=== PATIENT | female | born 1985 | race African-American/Black ===

== ENCOUNTER 2020-11-20 08:39 | Observation (INO) ==
[2020-11-20] MEDS ORDERED: ONDANSETRON 4 MG/2 ML VIAL IV ONE (09:18)
[2020-11-20] MEDS ORDERED: HYDROmorphone 2 MG/1 ML VIAL IV STA (09:18)
[2020-11-20 10:09] LABS: Basophils % 0.3 % (0.0-0.8); Eosinophils # 0.1 10*3/uL (0.0-0.87); Eosinophils % 0.7 % (0.00-10.9); Hematocrit 38.7 VOL% (35.7-47.0); Hemoglobin 12.1 GM/DL (12.0-16.0); Immature Granulocytes % 4.2 %; Immature Granulocytes Absolute 0.57 #; Lymphocytes # 1.2 10*3/uL (1.4-4.0); Lymphocytes % 8.5 % (21.3-54.2); Mean Corpuscular HGB Conc 31.3 GM/DL (32-36); Mean Corpuscular Volume 87.6 FL (87-102); Mean Platelet Volume 11.3 FL (9.6-12.0); Monocytes % 11.2 % (1.7-12.7); NRBC # 0.02 10*3/uL; Neutrophils % 75.1 % (38.7-73.9); Platelet Count 281 T/CUMM (130-400); Red Blood Count 4.42 MC/CUMM (3.8-5.5); Red Cell Distribution Width 15.5 % (9.3-17.3); White Blood Count 13.7 T/CUMM (4-12)
[2020-11-20 10:23] LABS: Albumin 2.3 G/DL (3.4-5.0); Bilirubin,Total 0.8 MG/DL (0.20-1.00); Calcium 8.2 MG/DL (8.5-10.1); Osmolality,Calculated 279.4 MOS/KG (273-304); Potassium 3.6 MMOL/L (3.5-5.1); Total Protein 8.3 G/DL (6.4-8.2)
[2020-11-20] MEDS ORDERED: SODIUM CHLORIDE 0.9% 1,000 ML IV STA (10:28)
[2020-11-20] MEDS ORDERED: VANCOMYCIN INJ 1,250 MG in SODIUM CHLORIDE 0.9% 250 ML IV STA (10:29)
[2020-11-20] MEDS ORDERED: GLUCAGON 1 MG VIAL IM PRN (11:40)
[2020-11-20] MEDS ORDERED: ALBUTEROL 2.5 MG/3 ML NEB RESP TX PRN (11:40)
[2020-11-20] MEDS ORDERED: DEXTROSE 50% 25 GM/50 ML VIAL IV PRN (11:40)
[2020-11-20] MEDS ORDERED: ALUMINUM/MAGNES/SIMETH MAX STR 30 ML UDCUP PO PRN (11:40)
[2020-11-20] MEDS ORDERED: ONDANSETRON 4 MG/2 ML VIAL IV PRN (11:40)
[2020-11-20] MEDS ORDERED: hydrALAZINE 20 MG/1 ML VIAL IV PRN (11:40)
[2020-11-20 11:47] LABS: Bilirubin,Urine Negative (Negative); Blood, Urine Moderate mg/dL (Negative); Glucose,Urine (UA) Negative (Negative); Ketones,Urine Negative (Negative); Nitrite,Urine Negative (Negative); Protein,Urine Negative; RBC,Urine <1 /HPF (0-4); Urine Appearance CLEAR (Clear); Urine Color Yellow (Yellow); Urine Specific Gravity 1.014 (1.001-1.035)
[2020-11-20] MEDS ORDERED: SODIUM CHLORIDE 0.9% 1,000 ML IV SCH (12:00)
[2020-11-20 12:02] LABS: Hypochromasia 1+; Lymphocytes 5 % (20-55); Platelet Estimate Normal; Segmented Neutrophils 86 % (50-85); Total Cells Counted 100
[2020-11-20] MEDS ORDERED: FLUCONAZOLE INJ 200 MG/100 ML PREMIX IV ONE (12:09)
[2020-11-20] MEDS: ENOXAPARIN 40 MG/0.4 ML SYRINGE SUBCUT SCH (12:26)
[2020-11-20] MEDS: ALBUTEROL/IPRATROPIUM 3 ML NEB RESP TX SCH ×2 (13:15→19:04)
[2020-11-20] MEDS ORDERED: FUROSEMIDE 40 MG/4 ML VIAL IV ONE (13:30)
[2020-11-20] MEDS: carvediloL 25 MG TABLET PO SCH (16:15)
[2020-11-20] MEDS: NYSTATIN POWDER 15 GM BOTTLE TOP SCH (20:49)
[2020-11-20] MEDS: DOCUSATE SODIUM 100 MG CAPSULE PO SCH (20:49)
[2020-11-20] MEDS ORDERED: DESITIN 4OZ/NYSTATIN 15 GRAM MIXTURE PASTE TOP SCH (21:00)
[2020-11-20] MEDS ORDERED: SODIUM HYPOCHLORITE 0.25% IRRIG 473 ML BOTTLE TOP SCH (21:00)
[2020-11-20] MEDS ORDERED: VANCOMYCIN INJ 2,000 MG in SODIUM CHLORIDE 0.9% 500 ML IV SCH (22:00)
[2020-11-20] MEDS ORDERED: VANCOMYCIN INJ 2,500 MG in SODIUM CHLORIDE 0.9% 500 ML IV SCH (23:00)
[2020-11-21 06:30] LABS: Calcium 8.1 MG/DL (8.5-10.1); Potassium 4.2 MMOL/L (3.5-5.1); Risk Ratio 4.6; Thyroid Stimulating Hormone 0.819 uIU/ml (0.358-3.74); VLDL Cholesterol 23.2 MG/DL
[2020-11-21] MEDS: ALBUTEROL/IPRATROPIUM 3 ML NEB RESP TX SCH ×4 (07:04→19:38)
[2020-11-21] MEDS ORDERED: FUROSEMIDE 20 MG/2 ML VIAL IV ONE (07:12)
[2020-11-21 07:13] LABS: Basophils # 0.1 10*3/uL (0.0-0.2); Basophils % 0.5 % (0.0-0.8); Eosinophils # 0.2 10*3/uL (0.0-0.87); Eosinophils % 1.6 % (0.00-10.9); Hematocrit 39.3 VOL% (35.7-47.0); Hemoglobin 11.5 GM/DL (12.0-16.0); Immature Granulocytes % 4.6 %; Immature Granulocytes Absolute 0.51 #; Lymphocytes # 1.4 10*3/uL (1.4-4.0); Lymphocytes % 12.7 % (21.3-54.2); Mean Corpuscular HGB Conc 29.3 GM/DL (32-36); Mean Corpuscular Volume 92.7 FL (87-102); Mean Platelet Volume 11.4 FL (9.6-12.0); Monocytes % 14.1 % (1.7-12.7); Neutrophils % 66.5 % (38.7-73.9); Platelet Count 277 T/CUMM (130-400); Red Blood Count 4.24 MC/CUMM (3.8-5.5)
[2020-11-21 08:53] LABS: Lymphocytes 8 % (20-55); Segmented Neutrophils 74 % (50-85); Total Cells Counted 100
[2020-11-21 08:54] LABS: Hypochromasia 2+; Platelet Estimate Normal
[2020-11-21] MEDS: ASPIRIN CHEW 81 MG TABLET PO SCH (09:02)
[2020-11-21] MEDS: carvediloL 25 MG TABLET PO SCH ×2 (09:03→16:29)
[2020-11-21] MEDS: NYSTATIN POWDER 15 GM BOTTLE TOP SCH ×2 (09:03→21:34)
[2020-11-21] MEDS: PANTOPRAZOLE 40 MG TABLET PO SCH (09:03)
[2020-11-21] MEDS: DOCUSATE SODIUM 100 MG CAPSULE PO SCH ×2 (10:39→21:35)
[2020-11-21] MEDS: ISOSORBIDE MONONITRATE 30 MG TABLET PO SCH (10:39)
[2020-11-21] MEDS: amLODIPine 10 MG TABLET PO SCH (10:40)
[2020-11-21] MEDS: FLUCONAZOLE INJ 200 MG/100 ML PREMIX IV SCH (11:47)
[2020-11-21] MEDS: ENOXAPARIN 40 MG/0.4 ML SYRINGE SUBCUT SCH (11:47)
[2020-11-21] MEDS ORDERED: VANCOMYCIN INJ 2,000 MG in SODIUM CHLORIDE 0.9% 500 ML IV SCH (22:00)
[2020-11-22] MEDS: ALBUTEROL/IPRATROPIUM 3 ML NEB RESP TX SCH ×3 (00:20→14:09)
[2020-11-22 05:41] LABS: Calcium 8.1 MG/DL (8.5-10.1); Osmolality,Calculated 275.1 MOS/KG (273-304); Potassium 4.7 MMOL/L (3.5-5.1)
[2020-11-22 06:26] LABS: Basophils # 0.1 10*3/uL (0.0-0.2); Basophils % 0.8 % (0.0-0.8); Eosinophils # 0.2 10*3/uL (0.0-0.87); Eosinophils % 1.5 % (0.00-10.9); Hematocrit 39.2 VOL% (35.7-47.0); Immature Granulocytes % 6.4 %; Immature Granulocytes Absolute 0.63 #; Lymphocytes # 1.7 10*3/uL (1.4-4.0); Lymphocytes % 17.3 % (21.3-54.2); Mean Corpuscular HGB Conc 30.4 GM/DL (32-36); Mean Corpuscular Volume 90.3 FL (87-102); Mean Platelet Volume 11.3 FL (9.6-12.0); Monocytes % 16.6 % (1.7-12.7); Neutrophils % 57.4 % (38.7-73.9); Platelet Count 258 T/CUMM (130-400); Red Blood Count 4.34 MC/CUMM (3.8-5.5); White Blood Count 9.9 T/CUMM (4-12)
[2020-11-22 06:27] LABS: Hemoglobin 11.9 GM/DL (12.0-16.0)
[2020-11-22 06:30] LABS: Band Neutrophils 1 % (0-10); Eosinophils 1 % (0-10); Hypochromasia 1+; Lymphocytes 18 % (20-55); Microcytosis 1+; Platelet Estimate Adequate; Segmented Neutrophils 68 % (50-85); Total Cells Counted 100
[2020-11-22] MEDS: PANTOPRAZOLE 40 MG TABLET PO SCH (10:28)
[2020-11-22] MEDS: carvediloL 25 MG TABLET PO SCH (10:28)
[2020-11-22] MEDS: amLODIPine 10 MG TABLET PO SCH (10:28)
[2020-11-22] MEDS: ASPIRIN CHEW 81 MG TABLET PO SCH (10:28)
[2020-11-22] MEDS: ISOSORBIDE MONONITRATE 30 MG TABLET PO SCH (10:28)
[2020-11-22] MEDS: FLUCONAZOLE INJ 200 MG/100 ML PREMIX IV SCH (10:29)
[2020-11-22] MEDS: NYSTATIN POWDER 15 GM BOTTLE TOP SCH (10:34)
[2020-11-22] MEDS: DOCUSATE SODIUM 100 MG CAPSULE PO SCH (11:05)
[2020-11-22 11:26] VITALS: BP 146/89
[2020-11-22] MEDS: ENOXAPARIN 40 MG/0.4 ML SYRINGE SUBCUT SCH (11:28)
== END 2020-11-22 16:20 | disposition home health service (06) ==
LOC: EDUNIT# → EDBD → N.ED 08:39 → N.EDINP 08:39 → N.3E 13:28
PROVIDERS: ADMIT Internal Medicine; ATTEND Internal Medicine

== ENCOUNTER 2021-08-19 11:53 | Inpatient (IN) ==
[2021-08-19] MEDS ORDERED: cefTRIAXone 1,000 MG in SODIUM CHLORIDE 0.9% 100 ML IV STA (13:21)
[2021-08-19 13:34] LABS: Arterial Base Excess iSTAT 12 MMOL/L (-2.5-2.5); Arterial Bicarbonate iSTAT 42.6 MMOL/L (20-26); Arterial O2 Saturation iSTAT 100 % (95-100); Arterial PCO2 iSTAT 89 MM HG (35-48); Arterial PO2 iSTAT 237 MM HG (80-95); Arterial Total CO2 iSTAT 45 MMO/L (23-27); Arterial pH iSTAT 7.287 (7.35-7.45)
[2021-08-19] MEDS ORDERED: FUROSEMIDE 40 MG/4 ML VIAL IV STA (13:34)
[2021-08-19 14:33] LABS: Basophils % 0.1 % (0.0-0.8); Eosinophils % 0.2 % (0.00-10.9); Hematocrit 43.6 VOL% (35.7-47.0); Hemoglobin 12.3 GM/DL (12.0-16.0); Immature Granulocytes % 0.7 %; Immature Granulocytes Absolute 0.07 #; Lymphocytes # 0.9 10*3/uL (1.4-4.0); Lymphocytes % 8.8 % (21.3-54.2); Mean Corpuscular HGB Conc 28.2 GM/DL (32-36); Mean Platelet Volume 10.5 FL (9.6-12.0); Monocytes # 1.3 10*3/uL (0.11-0.8); Monocytes % 13.3 % (1.7-12.7); Neutrophils % 76.9 % (38.7-73.9); Platelet Count 208 T/CUMM (130-400); Red Blood Count 4.59 MC/CUMM (3.8-5.5); Red Cell Distribution Width 16.4 % (9.3-17.3); White Blood Count 9.9 T/CUMM (4-12)
[2021-08-19 14:34] LABS: Albumin 2.6 G/DL (3.4-5.0); Bilirubin,Total 0.7 MG/DL (0.20-1.00); Calcium 8.3 MG/DL (8.5-10.1); Osmolality,Calculated 277.7 MOS/KG (273-304); Potassium 4.4 MMOL/L (3.5-5.1); Total Protein 8.8 G/DL (6.4-8.2)
[2021-08-19 14:35] LABS: Hypochromia 1+
[2021-08-19 14:36] LABS: Anisocytosis Slight
[2021-08-19 14:37] LABS: Platelet Estimate Normal
[2021-08-19] MEDS ORDERED: ALBUTEROL 2.5 MG/3 ML NEB RESP TX PRN (15:06)
[2021-08-19 15:22] LABS: Arterial Base Excess iSTAT 10 MMOL/L (-2.5-2.5); Arterial Bicarbonate iSTAT 39.9 MMOL/L (20-26); Arterial O2 Saturation iSTAT 97 % (95-100); Arterial PCO2 iSTAT 76 MM HG (35-48); Arterial PO2 iSTAT 101 MM HG (80-95); Arterial Total CO2 iSTAT 42 MMO/L (23-27); Arterial pH iSTAT 7.328 (7.35-7.45)
[2021-08-19 15:36] LABS: INR 1.1; PT Patient Result 11.6 SECS (10.5-12.0)
[2021-08-19 15:57] LABS: Barbiturates Screen,Urine Negative (Negative); Benzodiazepines Screen,Urine Negative (Negative); Cannabinoid Screen,Urine Negative (Negative); Opiate Screen,Urine Negative (Negative); Phencyclidine Screen,Urine Negative (Negative)
[2021-08-19] MEDS ORDERED: ETOMIDATE 20 MG/10 ML VIAL IV ONE (16:46)
[2021-08-19] MEDS ORDERED: ROCURONIUM 100 MG/10 ML VIAL IV ONE (16:47)
[2021-08-19] MEDS: ENOXAPARIN 40 MG/0.4 ML SYRINGE SUBCUT SCH (17:20)
[2021-08-19] MEDS: methylPREDNISolone SOD SUC 40 MG/1 ML VIAL IV SCH (17:25)
[2021-08-19] MEDS: AZITHROMYCIN INJ 500 MG in SODIUM CHLORIDE 0.9% 250 ML IV SCH (18:00)
[2021-08-19] MEDS: INSULIN LISPRO 100 UNIT/ML SUBCUT SCH (18:05)
[2021-08-19] MEDS: ALBUTEROL/IPRATROPIUM 3 ML NEB RESP TX SCH (19:12)
[2021-08-19] MEDS ORDERED: FUROSEMIDE 40 MG/4 ML VIAL IV ONE (21:00)
[2021-08-19] MEDS: QUEtiapine 25 MG TABLET PO SCH (21:51)
[2021-08-19] MEDS: CLOTRIMAZOLE 1% CREAM 15 GM TUBE TOP SCH (21:51)
[2021-08-20] MEDS: ALBUTEROL/IPRATROPIUM 3 ML NEB RESP TX SCH ×5 (00:02→23:52)
[2021-08-20] MEDS: methylPREDNISolone SOD SUC 40 MG/1 ML VIAL IV SCH ×3 (00:51→22:32)
[2021-08-20] MEDS: INSULIN LISPRO 100 UNIT/ML SUBCUT SCH ×4 (00:56→17:51)
[2021-08-20 02:57] LABS: Hyaline Casts,Urine 1 /LPF (0-3); Squamous Epithelial Cell,Urine Occasional /HPF (0-10); Urine Appearance Clear (Clear); Urine Color Yellow (Yellow); Urine pH 5.5 (4.5-8.0)
[2021-08-20 02:58] LABS: Bilirubin,Urine Negative (Negative); Blood, Urine Trace mg/dL (Negative); Glucose,Urine (UA) Negative (Negative); Ketones,Urine Negative (Negative); Nitrite,Urine Negative (Negative); Protein,Urine Negative (Negative); Urine Urobilinogen 0.2 eU/dL (<2.0)
[2021-08-20 04:17] LABS: ABG Base Excess 13.5 MMOL/L (-2.5-2.5); ABG HCO3 37.2 MMOL/L (20-26); ABG Oxygen Saturation 91.1 % (95-100); ABG PCO2 63.3 MM HG (35-48); ABG PH 7.421 (7.35-7.45); ABG PO2 65.5 MM HG (80-95); ABG TCO2 36.3 MMOL/L (23-27)
[2021-08-20 04:27] LABS: Hematocrit 42.2 VOL% (35.7-47.0); Immature Granulocytes % 0.6 %; Immature Granulocytes Absolute 0.05 #; Lymphocytes # 0.8 10*3/uL (1.4-4.0); Mean Corpuscular HGB Conc 28.9 GM/DL (32-36); Mean Corpuscular Volume 93.6 FL (87-102); Mean Platelet Volume 10.4 FL (9.6-12.0); Monocytes # 0.3 10*3/uL (0.11-0.8); Monocytes % 3.8 % (1.7-12.7); Neutrophils % 86.6 % (38.7-73.9); Platelet Count 206 T/CUMM (130-400); Red Blood Count 4.51 MC/CUMM (3.8-5.5); Red Cell Distribution Width 16.4 % (9.3-17.3); White Blood Count 8.5 T/CUMM (4-12)
[2021-08-20 04:30] LABS: Hemoglobin 12.2 GM/DL (12.0-16.0)
[2021-08-20 04:59] LABS: Alanine Aminotransferase 16 U/L (13-56); Albumin 2.4 G/DL (3.4-5.0); Alkaline Phosphatase 45 U/L (45-117); Aspartate Amino Transferase 28 U/L (0-37); Bilirubin,Total < 0.39 MG/DL (0.20-1.00); Blood Urea Nitrogen 16 MG/DL (7-18); Calcium 8.9 MG/DL (8.5-10.1); Carbon Dioxide 39 MMOL/L (21-32); Chloride 93 MMOL/L (98-107); Glucose 166 MG/DL (74-106); Potassium 3.6 MMOL/L (3.5-5.1); Sodium 136 MMOL/L (136-145); Thyroid Stimulating Hormone 0.117 uIU/ml (0.358-3.74)
[2021-08-20] MEDS: FUROSEMIDE 40 MG/4 ML VIAL IV SCH ×2 (08:54→16:17)
[2021-08-20] MEDS ORDERED: FUROSEMIDE 40 MG/4 ML VIAL IV SCH (09:00)
[2021-08-20] MEDS: CLOTRIMAZOLE 1% CREAM 15 GM TUBE TOP SCH ×2 (09:20→20:35)
[2021-08-20] MEDS: DIAZEPAM 5 MG TABLET PER TUBE SCH ×2 (10:27→18:04)
[2021-08-20] MEDS ORDERED: ETOMIDATE 20 MG/10 ML VIAL IV ONE (11:32)
[2021-08-20] MEDS ORDERED: ROCURONIUM 100 MG/10 ML VIAL IV ONE (11:33)
[2021-08-20] MEDS: FAMOTIDINE 8 MG/ML 50 ML/BOTTLE PER TUBE SCH ×3 (11:52→18:04)
[2021-08-20] MEDS: ENOXAPARIN 40 MG/0.4 ML SYRINGE SUBCUT SCH (15:44)
[2021-08-20] MEDS: AZITHROMYCIN INJ 500 MG in SODIUM CHLORIDE 0.9% 250 ML IV SCH (15:44)
[2021-08-20] MEDS: QUEtiapine 25 MG TABLET PO SCH (21:35)
[2021-08-21] MEDS: FAMOTIDINE 8 MG/ML 50 ML/BOTTLE PER TUBE SCH ×4 (00:10→17:30)
[2021-08-21] MEDS: INSULIN LISPRO 100 UNIT/ML SUBCUT SCH ×4 (02:20→17:57)
[2021-08-21] MEDS: DIAZEPAM 5 MG TABLET PER TUBE SCH ×3 (02:30→17:24)
[2021-08-21 04:02] LABS: ABG Base Excess 15.6 MMOL/L (-2.5-2.5); ABG HCO3 39.5 MMOL/L (20-26); ABG Oxygen Saturation 94.5 % (95-100); ABG PH 7.484 (7.35-7.45); ABG PO2 75.3 MM HG (80-95); ABG TCO2 37.2 MMOL/L (23-27)
[2021-08-21 04:32] LABS: Basophils % 0.1 % (0.0-0.8); Eosinophils % 0.1 % (0.00-10.9); Hemoglobin 11.6 GM/DL (12.0-16.0); Immature Granulocytes % 0.5 %; Immature Granulocytes Absolute 0.04 #; Lymphocytes # 1.6 10*3/uL (1.4-4.0); Lymphocytes % 19.1 % (21.3-54.2); Monocytes # 0.9 10*3/uL (0.11-0.8); Monocytes % 11.3 % (1.7-12.7); Neutrophils % 68.9 % (38.7-73.9); Platelet Count 201 T/CUMM (130-400); Red Blood Count 4.35 MC/CUMM (3.8-5.5); Red Cell Distribution Width 16.5 % (9.3-17.3); White Blood Count 8.3 T/CUMM (4-12)
[2021-08-21 04:34] LABS: Calcium 8.4 MG/DL (8.5-10.1); Osmolality,Calculated 277.1 MOS/KG (273-304); Potassium 3.4 MMOL/L (3.5-5.1)
[2021-08-21] MEDS: ALBUTEROL/IPRATROPIUM 3 ML NEB RESP TX SCH ×3 (07:20→19:14)
[2021-08-21] MEDS: POTASSIUM CHLORIDE 20 MEQ TABLET PO SCH ×4 (08:52→22:09)
[2021-08-21] MEDS: methylPREDNISolone SOD SUC 40 MG/1 ML VIAL IV SCH ×2 (08:53→22:08)
[2021-08-21] MEDS: FUROSEMIDE 40 MG/4 ML VIAL IV SCH ×2 (08:57→10:28)
[2021-08-21] MEDS: CLOTRIMAZOLE 1% CREAM 15 GM TUBE TOP SCH ×2 (08:58→20:12)
[2021-08-21] MEDS: AZITHROMYCIN INJ 500 MG in SODIUM CHLORIDE 0.9% 250 ML IV SCH (17:25)
[2021-08-21] MEDS: ENOXAPARIN 40 MG/0.4 ML SYRINGE SUBCUT SCH (17:25)
[2021-08-21] MEDS: QUEtiapine 25 MG TABLET PO SCH (22:10)
[2021-08-22] MEDS: FAMOTIDINE 8 MG/ML 50 ML/BOTTLE PER TUBE SCH ×4 (00:52→17:02)
[2021-08-22] MEDS: INSULIN LISPRO 100 UNIT/ML SUBCUT SCH ×4 (00:52→17:01)
[2021-08-22] MEDS: DIAZEPAM 5 MG TABLET PER TUBE SCH ×3 (00:55→16:49)
[2021-08-22] MEDS: POTASSIUM CHLORIDE 20 MEQ TABLET PO SCH (00:56)
[2021-08-22] MEDS: ALBUTEROL/IPRATROPIUM 3 ML NEB RESP TX SCH ×4 (01:02→18:57)
[2021-08-22 05:13] LABS: PT Patient Result 11.2 SECS (10.5-12.0)
[2021-08-22 05:20] LABS: Calcium 8.8 MG/DL (8.5-10.1); Potassium 3.9 MMOL/L (3.5-5.1)
[2021-08-22 05:26] LABS: Hemoglobin 12.2 GM/DL (12.0-16.0); Immature Granulocytes % 0.5 %; Immature Granulocytes Absolute 0.03 #; Lymphocytes # 0.7 10*3/uL (1.4-4.0); Lymphocytes % 11.2 % (21.3-54.2); Mean Corpuscular Volume 91.7 FL (87-102); Mean Platelet Volume 10.3 FL (9.6-12.0); Monocytes # 0.5 10*3/uL (0.11-0.8); Monocytes % 7.9 % (1.7-12.7); Neutrophils % 80.4 % (38.7-73.9); Platelet Count 224 T/CUMM (130-400); Red Blood Count 4.58 MC/CUMM (3.8-5.5); Red Cell Distribution Width 16.8 % (9.3-17.3); White Blood Count 6.4 T/CUMM (4-12)
[2021-08-22 06:34] LABS: Arterial Base Excess iSTAT 12 MMOL/L (-2.5-2.5); Arterial Bicarbonate iSTAT 37.8 MMOL/L (20-26); Arterial O2 Saturation iSTAT 98 % (95-100); Arterial PCO2 iSTAT 50 MM HG (35-48); Arterial PO2 iSTAT 100 MM HG (80-95); Arterial Total CO2 iSTAT 39 MMO/L (23-27)
[2021-08-22] MEDS: methylPREDNISolone SOD SUC 40 MG/1 ML VIAL IV SCH ×2 (08:38→20:43)
[2021-08-22] MEDS: FUROSEMIDE 40 MG/4 ML VIAL IV SCH ×2 (08:39→15:31)
[2021-08-22] MEDS: CLOTRIMAZOLE 1% CREAM 15 GM TUBE TOP SCH ×2 (08:39→20:43)
[2021-08-22] MEDS: cefTRIAXone 1,000 MG in SODIUM CHLORIDE 0.9% 100 ML IV SCH (10:10)
[2021-08-22] MEDS ORDERED: POTASSIUM CHLORIDE 20 MEQ TABLET PO ONE (11:00)
[2021-08-22] MEDS ORDERED: POTASSIUM BICARB EFFERVESCENT 20 MEQ TAB.EFF PO ONE (11:09)
[2021-08-22] MEDS: ENOXAPARIN 40 MG/0.4 ML SYRINGE SUBCUT SCH (15:31)
[2021-08-22] MEDS: AZITHROMYCIN INJ 500 MG in SODIUM CHLORIDE 0.9% 250 ML IV SCH (15:31)
[2021-08-22] MEDS: QUEtiapine 25 MG TABLET PO SCH (20:43)
[2021-08-23] MEDS: ALBUTEROL/IPRATROPIUM 3 ML NEB RESP TX SCH ×4 (00:06→19:13)
[2021-08-23] MEDS: INSULIN LISPRO 100 UNIT/ML SUBCUT SCH ×4 (00:53→17:00)
[2021-08-23] MEDS: FAMOTIDINE 8 MG/ML 50 ML/BOTTLE PER TUBE SCH ×5 (00:53→23:42)
[2021-08-23] MEDS: DIAZEPAM 5 MG TABLET PER TUBE SCH ×3 (00:54→16:40)
[2021-08-23 06:14] LABS: Potassium 3.9 MMOL/L (3.5-5.1)
[2021-08-23 06:14] LABS: Arterial Base Excess iSTAT 12 MMOL/L (-2.5-2.5); Arterial Bicarbonate iSTAT 38.2 MMOL/L (20-26); Arterial O2 Saturation iSTAT 96 % (95-100); Arterial PCO2 iSTAT 55 MM HG (35-48); Arterial PO2 iSTAT 78 MM HG (80-95); Arterial Total CO2 iSTAT 40 MMO/L (23-27); Arterial pH iSTAT 7.448 (7.35-7.45)
[2021-08-23 06:38] LABS: Eosinophils % 0.1 % (0.00-10.9); Hemoglobin 12.5 GM/DL (12.0-16.0); Immature Granulocytes % 0.5 %; Immature Granulocytes Absolute 0.04 #; Lymphocytes # 1.8 10*3/uL (1.4-4.0); Lymphocytes % 22.5 % (21.3-54.2); Mean Corpuscular HGB Conc 28.7 GM/DL (32-36); Mean Corpuscular Volume 92.8 FL (87-102); Mean Platelet Volume 10.7 FL (9.6-12.0); Monocytes # 1.1 10*3/uL (0.11-0.8); Monocytes % 13.7 % (1.7-12.7); Neutrophils % 63.2 % (38.7-73.9); Platelet Count 235 T/CUMM (130-400); Red Blood Count 4.69 MC/CUMM (3.8-5.5); Red Cell Distribution Width 16.8 % (9.3-17.3); White Blood Count 8.2 T/CUMM (4-12)
[2021-08-23 06:39] LABS: Hematocrit 43.5 VOL% (35.7-47.0)
[2021-08-23 06:46] LABS: Hypochromia Slight; Platelet Estimate Adequate
[2021-08-23] MEDS: FUROSEMIDE 40 MG/4 ML VIAL IV SCH ×2 (08:17→15:23)
[2021-08-23] MEDS: methylPREDNISolone SOD SUC 40 MG/1 ML VIAL IV SCH ×3 (08:18→16:40)
[2021-08-23] MEDS: CLOTRIMAZOLE 1% CREAM 15 GM TUBE TOP SCH ×2 (08:18→21:07)
[2021-08-23] MEDS: cefTRIAXone 1,000 MG in SODIUM CHLORIDE 0.9% 100 ML IV SCH (09:00)
[2021-08-23] MEDS: AZITHROMYCIN INJ 500 MG in SODIUM CHLORIDE 0.9% 250 ML IV SCH (15:30)
[2021-08-23] MEDS: ENOXAPARIN 40 MG/0.4 ML SYRINGE SUBCUT SCH (15:30)
[2021-08-23] MEDS: QUEtiapine 25 MG TABLET PO SCH (21:07)
[2021-08-24] MEDS: ALBUTEROL/IPRATROPIUM 3 ML NEB RESP TX SCH ×5 (00:30→23:53)
[2021-08-24] MEDS: INSULIN LISPRO 100 UNIT/ML SUBCUT SCH ×4 (00:46→17:24)
[2021-08-24] MEDS: methylPREDNISolone SOD SUC 40 MG/1 ML VIAL IV SCH ×3 (01:06→17:08)
[2021-08-24] MEDS: DIAZEPAM 5 MG TABLET PER TUBE SCH ×3 (01:43→17:07)
[2021-08-24 03:39] LABS: ABG Base Excess 9.1 MMOL/L (-2.5-2.5); ABG HCO3 32.8 MMOL/L (20-26); ABG Oxygen Saturation 93.7 % (95-100); ABG PCO2 45.7 MM HG (35-48); ABG PH 7.479 (7.35-7.45); ABG PO2 74.2 MM HG (80-95); ABG TCO2 29.7 MMOL/L (23-27)
[2021-08-24 04:04] LABS: PT Patient Result 11.4 SECS (10.5-12.0)
[2021-08-24 04:12] LABS: Calcium 8.9 MG/DL (8.5-10.1); Potassium 3.8 MMOL/L (3.5-5.1)
[2021-08-24 04:28] LABS: Basophils % 0.1 % (0.0-0.8); Eosinophils % 0.4 % (0.00-10.9); Hemoglobin 12.4 GM/DL (12.0-16.0); Immature Granulocytes % 0.4 %; Immature Granulocytes Absolute 0.03 #; Lymphocytes # 1.2 10*3/uL (1.4-4.0); Lymphocytes % 15.4 % (21.3-54.2); Mean Corpuscular HGB Conc 28.7 GM/DL (32-36); Mean Corpuscular Volume 92.3 FL (87-102); Mean Platelet Volume 10.5 FL (9.6-12.0); Monocytes # 0.9 10*3/uL (0.11-0.8); Monocytes % 11.8 % (1.7-12.7); Neutrophils % 71.9 % (38.7-73.9); Platelet Count 228 T/CUMM (130-400); Red Blood Count 4.68 MC/CUMM (3.8-5.5); Red Cell Distribution Width 16.8 % (9.3-17.3); White Blood Count 7.7 T/CUMM (4-12)
[2021-08-24 04:29] LABS: Hematocrit 43.2 VOL% (35.7-47.0)
[2021-08-24] MEDS: FAMOTIDINE 8 MG/ML 50 ML/BOTTLE PER TUBE SCH ×3 (05:58→17:08)
[2021-08-24] MEDS: FUROSEMIDE 40 MG/4 ML VIAL IV SCH ×2 (08:46→17:08)
[2021-08-24] MEDS: CLOTRIMAZOLE 1% CREAM 15 GM TUBE TOP SCH ×2 (09:00→20:45)
[2021-08-24] MEDS ORDERED: PNEUMOCOCCAL VACCINE (13 VALENT) 0.5 ML SYRINGE IM ONE (10:00)
[2021-08-24] MEDS: cefTRIAXone 1,000 MG in SODIUM CHLORIDE 0.9% 100 ML IV SCH (11:32)
[2021-08-24] MEDS: ENOXAPARIN 40 MG/0.4 ML SYRINGE SUBCUT SCH (17:08)
[2021-08-24] MEDS: QUEtiapine 25 MG TABLET PO SCH (20:37)
[2021-08-25] MEDS: FAMOTIDINE 8 MG/ML 50 ML/BOTTLE PER TUBE SCH ×4 (00:21→21:39)
[2021-08-25] MEDS: INSULIN LISPRO 100 UNIT/ML SUBCUT SCH ×4 (00:21→18:10)
[2021-08-25] MEDS: methylPREDNISolone SOD SUC 40 MG/1 ML VIAL IV SCH ×3 (00:43→17:00)
[2021-08-25] MEDS: DIAZEPAM 5 MG TABLET PER TUBE SCH ×3 (02:12→21:39)
[2021-08-25 04:52] LABS: Calcium 9.5 MG/DL (8.5-10.1); Osmolality,Calculated 288.1 MOS/KG (273-304); Potassium 3.6 MMOL/L (3.5-5.1)
[2021-08-25 04:57] LABS: ABG HCO3 31.6 MMOL/L (20-26); ABG Oxygen Saturation 91.2 % (95-100); ABG PCO2 42.2 MM HG (35-48); ABG PH 7.491 (7.35-7.45); ABG PO2 65.4 MM HG (80-95); ABG TCO2 27.9 MMOL/L (23-27)
[2021-08-25 05:04] LABS: Basophils % 0.1 % (0.0-0.8); Hemoglobin 12.8 GM/DL (12.0-16.0); Immature Granulocytes % 0.6 %; Immature Granulocytes Absolute 0.05 #; Lymphocytes % 11.4 % (21.3-54.2); Mean Corpuscular HGB Conc 28.9 GM/DL (32-36); Mean Corpuscular Volume 92.3 FL (87-102); Mean Platelet Volume 10.7 FL (9.6-12.0); Monocytes # 0.8 10*3/uL (0.11-0.8); Monocytes % 9.4 % (1.7-12.7); Neutrophils % 78.5 % (38.7-73.9); Platelet Count 242 T/CUMM (130-400); Red Cell Distribution Width 16.6 % (9.3-17.3)
[2021-08-25 05:06] LABS: Hematocrit 44.3 VOL% (35.7-47.0)
[2021-08-25 05:20] LABS: Phosphorous 3.3 MG/DL (2.5-4.9)
[2021-08-25] MEDS: ALBUTEROL/IPRATROPIUM 3 ML NEB RESP TX SCH ×3 (06:48→19:05)
[2021-08-25] MEDS: FUROSEMIDE 40 MG/4 ML VIAL IV SCH ×2 (09:00→09:30)
[2021-08-25] MEDS: CLOTRIMAZOLE 1% CREAM 15 GM TUBE TOP SCH ×2 (09:00→21:40)
[2021-08-25] MEDS: cefTRIAXone 1,000 MG in SODIUM CHLORIDE 0.9% 100 ML IV SCH (10:00)
[2021-08-25] MEDS: ENOXAPARIN 40 MG/0.4 ML SYRINGE SUBCUT SCH (17:44)
[2021-08-25] MEDS: QUEtiapine 25 MG TABLET PO SCH (20:33)
[2021-08-26] MEDS: ALBUTEROL/IPRATROPIUM 3 ML NEB RESP TX SCH ×4 (00:22→18:47)
[2021-08-26] MEDS: INSULIN LISPRO 100 UNIT/ML SUBCUT SCH ×4 (01:09→17:42)
[2021-08-26] MEDS: methylPREDNISolone SOD SUC 40 MG/1 ML VIAL IV SCH ×3 (01:09→16:55)
[2021-08-26 04:20] LABS: Basophils % 0.1 % (0.0-0.8); Immature Granulocytes % 0.7 %; Immature Granulocytes Absolute 0.07 #; Lymphocytes # 0.7 10*3/uL (1.4-4.0); Lymphocytes % 7.7 % (21.3-54.2); Mean Corpuscular HGB Conc 28.6 GM/DL (32-36); Mean Platelet Volume 10.3 FL (9.6-12.0); Monocytes # 1.1 10*3/uL (0.11-0.8); Monocytes % 11.3 % (1.7-12.7); Neutrophils % 80.2 % (38.7-73.9); Platelet Count 252 T/CUMM (130-400); Red Cell Distribution Width 16.8 % (9.3-17.3); White Blood Count 9.6 T/CUMM (4-12)
[2021-08-26 04:21] LABS: Calcium 9.3 MG/DL (8.5-10.1); Hemoglobin 12.9 GM/DL (12.0-16.0); Potassium 3.8 MMOL/L (3.5-5.1)
[2021-08-26 04:22] LABS: Hematocrit 45.1 VOL% (35.7-47.0)
[2021-08-26 04:42] LABS: Arterial Base Excess iSTAT 8 MMOL/L (-2.5-2.5); Arterial Bicarbonate iSTAT 34.6 MMOL/L (20-26); Arterial O2 Saturation iSTAT 96 % (95-100); Arterial PCO2 iSTAT 52 MM HG (35-48); Arterial PO2 iSTAT 82 MM HG (80-95); Arterial Total CO2 iSTAT 36 MMO/L (23-27); Arterial pH iSTAT 7.428 (7.35-7.45)
[2021-08-26] MEDS: FUROSEMIDE 40 MG/4 ML VIAL IV SCH (08:34)
[2021-08-26] MEDS: DIAZEPAM 5 MG TABLET PER TUBE SCH ×2 (08:34→20:40)
[2021-08-26] MEDS: CLOTRIMAZOLE 1% CREAM 15 GM TUBE TOP SCH ×2 (08:35→20:40)
[2021-08-26] MEDS: POLYETHYLENE GLYCOL POWDER 17 GM PACK PO SCH (09:21)
[2021-08-26] MEDS: cefTRIAXone 1,000 MG in SODIUM CHLORIDE 0.9% 100 ML IV SCH (09:25)
[2021-08-26] MEDS: HEPARIN DRIP 25,000 UNITS/500 ML PREMIX IV SCH ×2 (10:57→17:30)
[2021-08-26] MEDS: FAMOTIDINE 8 MG/ML 50 ML/BOTTLE PER TUBE SCH ×2 (11:58→20:40)
[2021-08-26] MEDS: LEVOFLOXACIN INJ 750 MG/150 ML PREMIX IV SCH (12:23)
[2021-08-26] MEDS: VANCOMYCIN INJ 2,000 MG in SODIUM CHLORIDE 0.9% 500 ML IV SCH (12:25)
[2021-08-26] MEDS: METOCLOPRAMIDE 10 MG/2 ML VIAL IV SCH ×2 (14:15→22:40)
[2021-08-26] MEDS: QUEtiapine 25 MG TABLET PO SCH (20:40)
[2021-08-27] MEDS: ALBUTEROL/IPRATROPIUM 3 ML NEB RESP TX SCH ×4 (00:16→20:00)
[2021-08-27] MEDS: methylPREDNISolone SOD SUC 40 MG/1 ML VIAL IV SCH ×3 (00:20→17:52)
[2021-08-27] MEDS: INSULIN LISPRO 100 UNIT/ML SUBCUT SCH ×4 (00:20→17:48)
[2021-08-27] MEDS: VANCOMYCIN INJ 2,000 MG in SODIUM CHLORIDE 0.9% 500 ML IV SCH ×2 (00:22→12:59)
[2021-08-27] MEDS: HEPARIN DRIP 25,000 UNITS/500 ML PREMIX IV SCH (01:40)
[2021-08-27 04:19] LABS: Arterial Base Excess iSTAT 7 MMOL/L (-2.5-2.5); Arterial Bicarbonate iSTAT 33.3 MMOL/L (20-26); Arterial O2 Saturation iSTAT 96 % (95-100); Arterial PCO2 iSTAT 53 MM HG (35-48); Arterial PO2 iSTAT 87 MM HG (80-95); Arterial Total CO2 iSTAT 35 MMO/L (23-27); Arterial pH iSTAT 7.404 (7.35-7.45)
[2021-08-27 04:23] LABS: Basophils % 0.1 % (0.0-0.8); Hematocrit 42.5 VOL% (35.7-47.0); Hemoglobin 12.4 GM/DL (12.0-16.0); Immature Granulocytes % 0.7 %; Immature Granulocytes Absolute 0.07 #; Lymphocytes # 0.7 10*3/uL (1.4-4.0); Lymphocytes % 6.6 % (21.3-54.2); Mean Corpuscular HGB Conc 29.2 GM/DL (32-36); Mean Corpuscular Volume 91.2 FL (87-102); Monocytes # 1.4 10*3/uL (0.11-0.8); Neutrophils % 79.6 % (38.7-73.9); Platelet Count 230 T/CUMM (130-400); Red Blood Count 4.66 MC/CUMM (3.8-5.5); Red Cell Distribution Width 16.5 % (9.3-17.3); White Blood Count 10.7 T/CUMM (4-12)
[2021-08-27 05:06] LABS: Osmolality,Calculated 286.2 MOS/KG (273-304); Potassium 3.8 MMOL/L (3.5-5.1)
[2021-08-27] MEDS: METOCLOPRAMIDE 10 MG/2 ML VIAL IV SCH ×3 (05:44→22:25)
[2021-08-27] MEDS: CLOTRIMAZOLE 1% CREAM 15 GM TUBE TOP SCH ×2 (09:09→20:10)
[2021-08-27] MEDS: POLYETHYLENE GLYCOL POWDER 17 GM PACK PO SCH (09:09)
[2021-08-27] MEDS: FAMOTIDINE 8 MG/ML 50 ML/BOTTLE PER TUBE SCH ×2 (09:09→20:10)
[2021-08-27] MEDS: amLODIPine 5 MG TABLET PO SCH (09:10)
[2021-08-27] MEDS: DIAZEPAM 5 MG TABLET PER TUBE SCH ×2 (09:10→20:10)
[2021-08-27] MEDS: SKIN HEALING OINT (AQUAPHOR) 50 GM TUBE TOP PRN ×2 (09:10→20:11)
[2021-08-27] MEDS: ISOSORBIDE MONONITRATE 30 MG TABLET PO SCH (09:10)
[2021-08-27] MEDS: FUROSEMIDE 40 MG/4 ML VIAL IV SCH (09:11)
[2021-08-27] MEDS: cefTRIAXone 1,000 MG in SODIUM CHLORIDE 0.9% 100 ML IV SCH (09:15)
[2021-08-27] MEDS ORDERED: HEPARIN DRIP 25,000 UNITS/500 ML PREMIX IV SCH (10:00)
[2021-08-27] MEDS: hydrALAZINE 20 MG/1 ML VIAL IV PRN (10:12)
[2021-08-27] MEDS: APIXABAN 5 MG TABLET PO SCH ×2 (10:24→20:10)
[2021-08-27] MEDS: DEXMEDETOMIDINE 400 MCG in SODIUM CHLORIDE 0.9% 96 ML IV PRN (11:01)
[2021-08-27] MEDS: LEVOFLOXACIN INJ 750 MG/150 ML PREMIX IV SCH ×2 (12:59→13:30)
[2021-08-27] MEDS: QUEtiapine 25 MG TABLET PO SCH (20:10)
[2021-08-28] MEDS: ALBUTEROL/IPRATROPIUM 3 ML NEB RESP TX SCH ×5 (00:12→23:00)
[2021-08-28] MEDS: INSULIN LISPRO 100 UNIT/ML SUBCUT SCH ×4 (00:13→18:37)
[2021-08-28] MEDS: methylPREDNISolone SOD SUC 40 MG/1 ML VIAL IV SCH ×3 (01:10→16:45)
[2021-08-28] MEDS: VANCOMYCIN INJ 2,000 MG in SODIUM CHLORIDE 0.9% 500 ML IV SCH ×2 (02:10→05:55)
[2021-08-28 04:12] LABS: Arterial Base Excess iSTAT 6 MMOL/L (-2.5-2.5); Arterial Bicarbonate iSTAT 32.9 MMOL/L (20-26); Arterial O2 Saturation iSTAT 96 % (95-100); Arterial PCO2 iSTAT 53 MM HG (35-48); Arterial PO2 iSTAT 87 MM HG (80-95); Arterial Total CO2 iSTAT 35 MMO/L (23-27); Arterial pH iSTAT 7.402 (7.35-7.45)
[2021-08-28 04:22] LABS: Basophils % 0.1 % (0.0-0.8); Hematocrit 42.2 VOL% (35.7-47.0); Hemoglobin 12.3 GM/DL (12.0-16.0); Immature Granulocytes % 0.9 %; Immature Granulocytes Absolute 0.09 #; Lymphocytes # 0.4 10*3/uL (1.4-4.0); Lymphocytes % 3.6 % (21.3-54.2); Mean Corpuscular HGB Conc 29.1 GM/DL (32-36); Mean Corpuscular Volume 91.1 FL (87-102); Mean Platelet Volume 11.3 FL (9.6-12.0); Monocytes # 1.9 10*3/uL (0.11-0.8); Monocytes % 17.9 % (1.7-12.7); Neutrophils % 77.5 % (38.7-73.9); Platelet Count 227 T/CUMM (130-400); Red Blood Count 4.63 MC/CUMM (3.8-5.5); Red Cell Distribution Width 16.4 % (9.3-17.3); White Blood Count 10.4 T/CUMM (4-12)
[2021-08-28 04:25] LABS: Lymphocytes 4 % (20-55); Platelet Estimate Normal; Total Cells Counted 100
[2021-08-28 04:31] LABS: Albumin 2.7 G/DL (3.4-5.0); Bilirubin,Total 0.5 MG/DL (0.20-1.00); Calcium 9.3 MG/DL (8.5-10.1); Potassium 3.8 MMOL/L (3.5-5.1)
[2021-08-28] MEDS: METOCLOPRAMIDE 10 MG/2 ML VIAL IV SCH ×3 (05:56→21:11)
[2021-08-28] MEDS: POLYETHYLENE GLYCOL POWDER 17 GM PACK PO SCH (08:04)
[2021-08-28] MEDS: CLOTRIMAZOLE 1% CREAM 15 GM TUBE TOP SCH ×2 (08:05→20:45)
[2021-08-28] MEDS: amLODIPine 5 MG TABLET PO SCH (08:05)
[2021-08-28] MEDS: FAMOTIDINE 8 MG/ML 50 ML/BOTTLE PER TUBE SCH ×2 (08:05→20:44)
[2021-08-28] MEDS: APIXABAN 5 MG TABLET PO SCH ×2 (08:05→20:43)
[2021-08-28] MEDS: ISOSORBIDE MONONITRATE 30 MG TABLET PO SCH (08:05)
[2021-08-28] MEDS: DIAZEPAM 5 MG TABLET PER TUBE SCH ×2 (08:05→20:44)
[2021-08-28] MEDS: FUROSEMIDE 40 MG/4 ML VIAL IV SCH (08:06)
[2021-08-28] MEDS: DEXMEDETOMIDINE 400 MCG in SODIUM CHLORIDE 0.9% 96 ML IV PRN ×2 (08:39→11:37)
[2021-08-28] MEDS: cefTRIAXone 1,000 MG in SODIUM CHLORIDE 0.9% 100 ML IV SCH (09:39)
[2021-08-28] MEDS: hydrALAZINE 20 MG/1 ML VIAL IV PRN ×2 (10:12→12:11)
[2021-08-28] MEDS: LEVOFLOXACIN INJ 750 MG/150 ML PREMIX IV SCH (13:53)
[2021-08-28] MEDS: QUEtiapine 25 MG TABLET PO SCH (20:43)
[2021-08-29] MEDS: methylPREDNISolone SOD SUC 40 MG/1 ML VIAL IV SCH ×3 (00:01→16:12)
[2021-08-29] MEDS: INSULIN LISPRO 100 UNIT/ML SUBCUT SCH ×4 (00:02→17:22)
[2021-08-29] MEDS: VANCOMYCIN INJ 2,000 MG in SODIUM CHLORIDE 0.9% 500 ML IV SCH ×2 (00:03→17:22)
[2021-08-29] MEDS: ALBUTEROL/IPRATROPIUM 3 ML NEB RESP TX SCH ×4 (01:00→20:06)
[2021-08-29 04:09] LABS: Basophils % 0.1 % (0.0-0.8); Immature Granulocytes % 1.1 %; Lymphocytes # 0.7 10*3/uL (1.4-4.0); Mean Corpuscular HGB Conc 29.4 GM/DL (32-36); Mean Corpuscular Volume 91.6 FL (87-102); Mean Platelet Volume 10.8 FL (9.6-12.0); Monocytes # 1.1 10*3/uL (0.11-0.8); Monocytes % 12.7 % (1.7-12.7); Neutrophils % 78.1 % (38.7-73.9); Platelet Count 229 T/CUMM (130-400); Red Blood Count 4.42 MC/CUMM (3.8-5.5); Red Cell Distribution Width 16.6 % (9.3-17.3); White Blood Count 8.8 T/CUMM (4-12)
[2021-08-29 04:10] LABS: Hematocrit 40.5 VOL% (35.7-47.0); Hemoglobin 11.9 GM/DL (12.0-16.0)
[2021-08-29 04:16] LABS: Albumin 2.6 G/DL (3.4-5.0); Bilirubin,Total 0.6 MG/DL (0.20-1.00); Calcium 9.3 MG/DL (8.5-10.1); Osmolality,Calculated 291.8 MOS/KG (273-304); Potassium 4.2 MMOL/L (3.5-5.1); Total Protein 8.5 G/DL (6.4-8.2)
[2021-08-29 04:29] LABS: Arterial Base Excess iSTAT 7 MMOL/L (-2.5-2.5); Arterial O2 Saturation iSTAT 98 % (95-100); Arterial PCO2 iSTAT 48 MM HG (35-48); Arterial PO2 iSTAT 112 MM HG (80-95); Arterial Total CO2 iSTAT 33 MMO/L (23-27); Arterial pH iSTAT 7.434 (7.35-7.45)
[2021-08-29] MEDS: METOCLOPRAMIDE 10 MG/2 ML VIAL IV SCH ×3 (05:49→21:09)
[2021-08-29] MEDS: APIXABAN 5 MG TABLET PO SCH ×2 (08:48→20:47)
[2021-08-29] MEDS: ISOSORBIDE MONONITRATE 30 MG TABLET PO SCH (08:48)
[2021-08-29] MEDS: FUROSEMIDE 40 MG/4 ML VIAL IV SCH ×2 (08:49→16:11)
[2021-08-29] MEDS: amLODIPine 5 MG TABLET PO SCH (08:49)
[2021-08-29] MEDS: POLYETHYLENE GLYCOL POWDER 17 GM PACK PO SCH (08:49)
[2021-08-29] MEDS: DIAZEPAM 5 MG TABLET PER TUBE SCH ×2 (08:49→20:48)
[2021-08-29] MEDS: FAMOTIDINE 8 MG/ML 50 ML/BOTTLE PER TUBE SCH ×2 (08:50→20:48)
[2021-08-29] MEDS: CLOTRIMAZOLE 1% CREAM 15 GM TUBE TOP SCH ×2 (08:50→20:48)
[2021-08-29] MEDS: cefTRIAXone 1,000 MG in SODIUM CHLORIDE 0.9% 100 ML IV SCH (10:09)
[2021-08-29] MEDS: hydrALAZINE 20 MG/1 ML VIAL IV PRN ×2 (10:09→17:22)
[2021-08-29] MEDS: DEXMEDETOMIDINE 400 MCG in SODIUM CHLORIDE 0.9% 96 ML IV PRN ×4 (10:30→18:22)
[2021-08-29] MEDS: LEVOFLOXACIN INJ 750 MG/150 ML PREMIX IV SCH (12:46)
[2021-08-29] MEDS: QUEtiapine 100 MG TABLET PO SCH (20:48)
[2021-08-30] MEDS: ALBUTEROL/IPRATROPIUM 3 ML NEB RESP TX SCH ×4 (00:27→18:51)
[2021-08-30] MEDS: methylPREDNISolone SOD SUC 40 MG/1 ML VIAL IV SCH ×3 (00:27→17:40)
[2021-08-30] MEDS: INSULIN LISPRO 100 UNIT/ML SUBCUT SCH ×5 (00:30→23:51)
[2021-08-30] MEDS: SKIN HEALING OINT (AQUAPHOR) 50 GM TUBE TOP PRN (02:02)
[2021-08-30 04:44] LABS: Calcium 9.1 MG/DL (8.5-10.1); Osmolality,Calculated 298.4 MOS/KG (273-304); Potassium 4.3 MMOL/L (3.5-5.1)
[2021-08-30 04:51] LABS: Hemoglobin 12.7 GM/DL (12.0-16.0); Immature Granulocytes % 0.8 %; Immature Granulocytes Absolute 0.06 #; Lymphocytes # 0.7 10*3/uL (1.4-4.0); Lymphocytes % 9.1 % (21.3-54.2); Mean Corpuscular HGB Conc 29.1 GM/DL (32-36); Mean Corpuscular Volume 91.6 FL (87-102); Monocytes # 1.1 10*3/uL (0.11-0.8); Monocytes % 14.2 % (1.7-12.7); Neutrophils % 75.9 % (38.7-73.9); Platelet Count 243 T/CUMM (130-400); Red Blood Count 4.76 MC/CUMM (3.8-5.5); Red Cell Distribution Width 16.6 % (9.3-17.3); White Blood Count 7.7 T/CUMM (4-12)
[2021-08-30 04:52] LABS: Hematocrit 43.6 VOL% (35.7-47.0)
[2021-08-30 04:59] LABS: ABG Base Excess 2.3 MMOL/L (-2.5-2.5); ABG HCO3 26.4 MMOL/L (20-26); ABG Oxygen Saturation 97.4 % (95-100); ABG PCO2 48.6 MM HG (35-48); ABG PH 7.374 (7.35-7.45); ABG TCO2 24.9 MMOL/L (23-27)
[2021-08-30] MEDS: METOCLOPRAMIDE 10 MG/2 ML VIAL IV SCH ×3 (05:15→21:04)
[2021-08-30] MEDS: APIXABAN 5 MG TABLET PO SCH ×2 (08:53→20:53)
[2021-08-30] MEDS: DIAZEPAM 5 MG TABLET PER TUBE SCH ×2 (08:53→21:03)
[2021-08-30] MEDS: amLODIPine 5 MG TABLET PO SCH (08:53)
[2021-08-30] MEDS: ISOSORBIDE MONONITRATE 30 MG TABLET PO SCH (08:54)
[2021-08-30] MEDS: POLYETHYLENE GLYCOL POWDER 17 GM PACK PO SCH (08:54)
[2021-08-30] MEDS: FUROSEMIDE 40 MG/4 ML VIAL IV SCH ×2 (08:54→15:57)
[2021-08-30] MEDS: FAMOTIDINE 8 MG/ML 50 ML/BOTTLE PER TUBE SCH ×2 (08:55→20:53)
[2021-08-30] MEDS: CLOTRIMAZOLE 1% CREAM 15 GM TUBE TOP SCH ×2 (08:55→20:53)
[2021-08-30] MEDS: cefTRIAXone 1,000 MG in SODIUM CHLORIDE 0.9% 100 ML IV SCH (09:10)
[2021-08-30] MEDS: DEXMEDETOMIDINE 400 MCG in SODIUM CHLORIDE 0.9% 96 ML IV PRN ×2 (10:27→17:31)
[2021-08-30] MEDS: VANCOMYCIN INJ 2,000 MG in SODIUM CHLORIDE 0.9% 500 ML IV SCH (12:22)
[2021-08-30] MEDS: LEVOFLOXACIN INJ 750 MG/150 ML PREMIX IV SCH (13:37)
[2021-08-30] MEDS: QUEtiapine 100 MG TABLET PO SCH (21:03)
[2021-08-31] MEDS: methylPREDNISolone SOD SUC 40 MG/1 ML VIAL IV SCH ×3 (00:51→16:20)
[2021-08-31] MEDS: DEXMEDETOMIDINE 400 MCG in SODIUM CHLORIDE 0.9% 96 ML IV PRN ×2 (00:54→08:43)
[2021-08-31] MEDS: ALBUTEROL/IPRATROPIUM 3 ML NEB RESP TX SCH ×4 (01:53→20:00)
[2021-08-31 04:53] LABS: Calcium 9.4 MG/DL (8.5-10.1); Osmolality,Calculated 300.5 MOS/KG (273-304); Potassium 4.6 MMOL/L (3.5-5.1)
[2021-08-31 04:58] LABS: Hemoglobin 13.1 GM/DL (12.0-16.0); Immature Granulocytes % 0.5 %; Immature Granulocytes Absolute 0.04 #; Lymphocytes # 0.6 10*3/uL (1.4-4.0); Mean Corpuscular HGB Conc 29.2 GM/DL (32-36); Mean Corpuscular Volume 91.8 FL (87-102); Mean Platelet Volume 11.4 FL (9.6-12.0); Monocytes # 0.8 10*3/uL (0.11-0.8); Monocytes % 9.7 % (1.7-12.7); Neutrophils % 81.8 % (38.7-73.9); Platelet Count 243 T/CUMM (130-400); Red Blood Count 4.89 MC/CUMM (3.8-5.5); Red Cell Distribution Width 16.7 % (9.3-17.3)
[2021-08-31 05:02] LABS: Hematocrit 44.9 VOL% (35.7-47.0)
[2021-08-31 05:26] LABS: ABG Base Excess 4.8 MMOL/L (-2.5-2.5); ABG HCO3 28.7 MMOL/L (20-26); ABG Oxygen Saturation 96.4 % (95-100); ABG PCO2 51.4 MM HG (35-48); ABG PO2 90.3 MM HG (80-95); ABG TCO2 27.3 MMOL/L (23-27)
[2021-08-31] MEDS: METOCLOPRAMIDE 10 MG/2 ML VIAL IV SCH ×3 (05:42→21:59)
[2021-08-31] MEDS: INSULIN LISPRO 100 UNIT/ML SUBCUT SCH ×3 (05:47→17:40)
[2021-08-31] MEDS: VANCOMYCIN INJ 2,000 MG in SODIUM CHLORIDE 0.9% 500 ML IV SCH (05:48)
[2021-08-31] MEDS: APIXABAN 5 MG TABLET PO SCH ×2 (08:59→22:00)
[2021-08-31] MEDS: FUROSEMIDE 40 MG/4 ML VIAL IV SCH ×2 (08:59→16:20)
[2021-08-31] MEDS: CLOTRIMAZOLE 1% CREAM 15 GM TUBE TOP SCH ×2 (09:00→22:00)
[2021-08-31] MEDS: ISOSORBIDE MONONITRATE 30 MG TABLET PO SCH (09:00)
[2021-08-31] MEDS: FAMOTIDINE 8 MG/ML 50 ML/BOTTLE PER TUBE SCH ×2 (09:00→22:00)
[2021-08-31] MEDS: DIAZEPAM 5 MG TABLET PER TUBE SCH (09:00)
[2021-08-31] MEDS: amLODIPine 5 MG TABLET PO SCH (09:00)
[2021-08-31] MEDS: POLYETHYLENE GLYCOL POWDER 17 GM PACK PO SCH (09:00)
[2021-08-31] MEDS: cefTRIAXone 1,000 MG in SODIUM CHLORIDE 0.9% 100 ML IV SCH (09:04)
[2021-08-31 09:32] LABS: Arterial Base Excess iSTAT 8 MMOL/L (-2.5-2.5); Arterial Bicarbonate iSTAT 34.5 MMOL/L (20-26); Arterial O2 Saturation iSTAT 97 % (95-100); Arterial PCO2 iSTAT 56 MM HG (35-48); Arterial PO2 iSTAT 89 MM HG (80-95); Arterial Total CO2 iSTAT 36 MMO/L (23-27); Arterial pH iSTAT 7.394 (7.35-7.45)
[2021-08-31] MEDS: LEVOFLOXACIN INJ 750 MG/150 ML PREMIX IV SCH (13:02)
[2021-09-01] MEDS: ALBUTEROL/IPRATROPIUM 3 ML NEB RESP TX SCH ×4 (00:47→19:15)
[2021-09-01] MEDS: methylPREDNISolone SOD SUC 40 MG/1 ML VIAL IV SCH ×3 (00:55→17:21)
[2021-09-01] MEDS: INSULIN LISPRO 100 UNIT/ML SUBCUT SCH ×6 (01:01→21:25)
[2021-09-01] MEDS: VANCOMYCIN INJ 2,000 MG in SODIUM CHLORIDE 0.9% 500 ML IV SCH ×2 (01:31→17:50)
[2021-09-01 03:57] LABS: Basophils % 0.1 % (0.0-0.8)
[2021-09-01 04:10] LABS: Calcium 9.4 MG/DL (8.5-10.1); Osmolality,Calculated 304.1 MOS/KG (273-304); Potassium 4.3 MMOL/L (3.5-5.1)
[2021-09-01 04:10] LABS: ABG Base Excess 6.4 MMOL/L (-2.5-2.5); ABG HCO3 30.2 MMOL/L (20-26); ABG Oxygen Saturation 95.6 % (95-100); ABG PCO2 52.6 MM HG (35-48); ABG PH 7.402 (7.35-7.45); ABG PO2 88.5 MM HG (80-95); ABG TCO2 28.6 MMOL/L (23-27)
[2021-09-01 04:19] LABS: Hemoglobin 12.6 GM/DL (12.0-16.0); Immature Granulocytes % 0.3 %; Immature Granulocytes Absolute 0.03 #; Mean Corpuscular HGB Conc 28.8 GM/DL (32-36); Mean Corpuscular Volume 93.2 FL (87-102); Mean Platelet Volume 11.4 FL (9.6-12.0); Monocytes # 1.2 10*3/uL (0.11-0.8); Monocytes % 12.3 % (1.7-12.7); Neutrophils % 77.3 % (38.7-73.9); Platelet Count 248 T/CUMM (130-400); Red Blood Count 4.69 MC/CUMM (3.8-5.5); Red Cell Distribution Width 16.8 % (9.3-17.3); White Blood Count 9.6 T/CUMM (4-12)
[2021-09-01 04:24] LABS: Hematocrit 43.7 VOL% (35.7-47.0)
[2021-09-01 04:44] LABS: Platelet Estimate Normal
[2021-09-01] MEDS: METOCLOPRAMIDE 10 MG/2 ML VIAL IV SCH ×3 (06:34→21:25)
[2021-09-01] MEDS ORDERED: GLUCAGON 1 MG VIAL IM PRN (07:39)
[2021-09-01] MEDS ORDERED: DEXTROSE 10% 250 ML BAG IV PRN (07:42)
[2021-09-01] MEDS ORDERED: GENTAMICIN 0.3% OPH OINT 3.5 GM TUBE BOTH EYES SCH (09:00)
[2021-09-01] MEDS: FUROSEMIDE 40 MG/4 ML VIAL IV SCH ×2 (09:28→17:22)
[2021-09-01] MEDS: POLYETHYLENE GLYCOL POWDER 17 GM PACK PO SCH (09:28)
[2021-09-01] MEDS: ISOSORBIDE MONONITRATE 30 MG TABLET PO SCH (09:29)
[2021-09-01] MEDS: amLODIPine 5 MG TABLET PO SCH (09:29)
[2021-09-01] MEDS: APIXABAN 5 MG TABLET PO SCH ×2 (09:29→20:10)
[2021-09-01] MEDS: FAMOTIDINE 8 MG/ML 50 ML/BOTTLE PER TUBE SCH (09:30)
[2021-09-01] MEDS: CLOTRIMAZOLE 1% CREAM 15 GM TUBE TOP SCH ×2 (09:42→20:10)
[2021-09-01] MEDS: GENTAMICIN 0.3% OPH SOLN 5 ML BOTTLE BOTH EYES SCH ×4 (10:49→20:10)
[2021-09-01] MEDS: cefTRIAXone 1,000 MG in SODIUM CHLORIDE 0.9% 100 ML IV SCH (10:53)
[2021-09-01] MEDS: LEVOFLOXACIN INJ 750 MG/150 ML PREMIX IV SCH (14:04)
[2021-09-01] MEDS: hydrALAZINE 20 MG/1 ML VIAL IV PRN (18:04)
[2021-09-01] MEDS: FAMOTIDINE 20 MG TABLET PO SCH (20:10)
[2021-09-02] MEDS: methylPREDNISolone SOD SUC 40 MG/1 ML VIAL IV SCH ×2 (00:15→13:50)
[2021-09-02 05:49] LABS: Calcium 9.9 MG/DL (8.5-10.1); Osmolality,Calculated 294.5 MOS/KG (273-304)
[2021-09-02 05:53] LABS: Basophils % 0.1 % (0.0-0.8); Hematocrit 45.6 VOL% (35.7-47.0); Immature Granulocytes % 0.6 %; Immature Granulocytes Absolute 0.05 #; Lymphocytes # 1.3 10*3/uL (1.4-4.0); Lymphocytes % 15.5 % (21.3-54.2); Mean Corpuscular HGB Conc 28.9 GM/DL (32-36); Mean Corpuscular Volume 91.8 FL (87-102); Mean Platelet Volume 11.4 FL (9.6-12.0); Monocytes # 1.3 10*3/uL (0.11-0.8); Monocytes % 14.6 % (1.7-12.7); Neutrophils % 69.2 % (38.7-73.9); Platelet Count 232 T/CUMM (130-400); Red Blood Count 4.97 MC/CUMM (3.8-5.5); Red Cell Distribution Width 16.8 % (9.3-17.3); White Blood Count 8.6 T/CUMM (4-12)
[2021-09-02 05:54] LABS: Hemoglobin 13.2 GM/DL (12.0-16.0)
[2021-09-02] MEDS: METOCLOPRAMIDE 10 MG/2 ML VIAL IV SCH ×3 (06:05→21:41)
[2021-09-02] MEDS: ALBUTEROL/IPRATROPIUM 3 ML NEB RESP TX SCH ×4 (07:17→20:31)
[2021-09-02] MEDS: INSULIN LISPRO 100 UNIT/ML SUBCUT SCH ×4 (09:45→21:08)
[2021-09-02] MEDS: FAMOTIDINE 20 MG TABLET PO SCH ×2 (09:54→21:07)
[2021-09-02] MEDS: APIXABAN 5 MG TABLET PO SCH ×2 (09:54→21:07)
[2021-09-02] MEDS: ISOSORBIDE MONONITRATE 30 MG TABLET PO SCH (09:55)
[2021-09-02] MEDS: amLODIPine 5 MG TABLET PO SCH (09:55)
[2021-09-02] MEDS: POLYETHYLENE GLYCOL POWDER 17 GM PACK PO SCH (09:58)
[2021-09-02] MEDS: CLOTRIMAZOLE 1% CREAM 15 GM TUBE TOP SCH ×2 (09:59→21:08)
[2021-09-02] MEDS: LEVOFLOXACIN INJ 750 MG/150 ML PREMIX IV SCH (13:09)
[2021-09-02] MEDS: GENTAMICIN 0.3% OPH SOLN 5 ML BOTTLE BOTH EYES SCH ×4 (13:10→21:07)
[2021-09-02] MEDS: FUROSEMIDE 40 MG/4 ML VIAL IV SCH (13:50)
[2021-09-02] MEDS: VANCOMYCIN INJ 2,000 MG in SODIUM CHLORIDE 0.9% 500 ML IV SCH (14:49)
[2021-09-03] MEDS: ALBUTEROL/IPRATROPIUM 3 ML NEB RESP TX SCH ×4 (01:35→19:10)
[2021-09-03] MEDS ORDERED: PANTOPRAZOLE 40 MG VIAL IV ONE (06:21)
[2021-09-03] MEDS: METOCLOPRAMIDE 10 MG/2 ML VIAL IV SCH (06:38)
[2021-09-03 06:39] LABS: Immature Granulocytes % 0.3 %; Immature Granulocytes Absolute 0.02 #; Red Cell Distribution Width 16.7 % (9.3-17.3)
[2021-09-03 06:59] LABS: Eosinophils # 0.1 10*3/uL (0.0-0.87); Eosinophils % 0.9 % (0.00-10.9); Hematocrit 45.9 VOL% (35.7-47.0); Lymphocytes % 27.1 % (21.3-54.2); Mean Corpuscular HGB Conc 28.3 GM/DL (32-36); Mean Corpuscular Volume 93.3 FL (87-102); Mean Platelet Volume 11.6 FL (9.6-12.0); Monocytes # 1.7 10*3/uL (0.11-0.8); Monocytes % 22.9 % (1.7-12.7); Neutrophils % 48.8 % (38.7-73.9); Platelet Count 205 T/CUMM (130-400); Red Blood Count 4.92 MC/CUMM (3.8-5.5); White Blood Count 7.5 T/CUMM (4-12)
[2021-09-03] MEDS: ONDANSETRON 4 MG/2 ML VIAL IV PRN ×2 (07:07→17:26)
[2021-09-03 07:09] LABS: Lymphocytes 32 % (20-55); Platelet Estimate Adequate; Total Cells Counted 100
[2021-09-03] MEDS: ISOSORBIDE MONONITRATE 30 MG TABLET PO SCH (10:43)
[2021-09-03] MEDS: amLODIPine 5 MG TABLET PO SCH (10:43)
[2021-09-03] MEDS: GENTAMICIN 0.3% OPH SOLN 5 ML BOTTLE BOTH EYES SCH ×4 (10:43→21:18)
[2021-09-03] MEDS: INSULIN LISPRO 100 UNIT/ML SUBCUT SCH ×4 (10:43→21:01)
[2021-09-03] MEDS: FAMOTIDINE 20 MG TABLET PO SCH (10:43)
[2021-09-03] MEDS: predniSONE 20 MG TABLET PO SCH (10:43)
[2021-09-03] MEDS: CLOTRIMAZOLE 1% CREAM 15 GM TUBE TOP SCH ×2 (10:44→21:24)
[2021-09-03] MEDS: POLYETHYLENE GLYCOL POWDER 17 GM PACK PO SCH (10:44)
[2021-09-03] MEDS: FUROSEMIDE 40 MG TABLET PO SCH (10:46)
[2021-09-03] MEDS: VANCOMYCIN INJ 2,000 MG in SODIUM CHLORIDE 0.9% 500 ML IV SCH ×2 (10:46→14:10)
[2021-09-03 12:16] LABS: Hematocrit 45.2 VOL% (35.7-47.0); Hemoglobin 12.7 GM/DL (12.0-16.0)
[2021-09-03] MEDS: CHOLECALCIFEROL 5,000 UNIT TABLET PO SCH (14:09)
[2021-09-03] MEDS: MULTIVITAMIN (BEROCCA) TABLET PO SCH (14:09)
[2021-09-03] MEDS: LEVOFLOXACIN INJ 750 MG/150 ML PREMIX IV SCH (14:10)
[2021-09-03] MEDS ORDERED: DEXTROSE 10% 250 ML BAG IV PRN (16:29)
[2021-09-03] MEDS: PANTOPRAZOLE 40 MG VIAL IV SCH (21:18)
[2021-09-04] MEDS: ALBUTEROL/IPRATROPIUM 3 ML NEB RESP TX SCH ×4 (00:46→19:06)
[2021-09-04 06:41] LABS: Calcium 9.2 MG/DL (8.5-10.1); Potassium 3.8 MMOL/L (3.5-5.1)
[2021-09-04 06:50] LABS: Eosinophils # 0.1 10*3/uL (0.0-0.87); Hematocrit 46.4 VOL% (35.7-47.0); Hemoglobin 12.5 GM/DL (12.0-16.0); Immature Granulocytes % 0.4 %; Immature Granulocytes Absolute 0.03 #; Lymphocytes % 24.4 % (21.3-54.2); Mean Corpuscular HGB Conc 26.9 GM/DL (32-36); Mean Corpuscular Volume 97.5 FL (87-102); Monocytes # 1.8 10*3/uL (0.11-0.8); Neutrophils % 52.2 % (38.7-73.9); Platelet Count 168 T/CUMM (130-400); Red Blood Count 4.76 MC/CUMM (3.8-5.5); Red Cell Distribution Width 15.9 % (9.3-17.3); White Blood Count 8.4 T/CUMM (4-12)
[2021-09-04 07:13] LABS: Eosinophils 1 % (0-10); Lymphocytes 21 % (20-55); Platelet Estimate Adequate; Total Cells Counted 100
[2021-09-04] MEDS: INSULIN LISPRO 100 UNIT/ML SUBCUT SCH ×4 (07:51→21:40)
[2021-09-04] MEDS: GENTAMICIN 0.3% OPH SOLN 5 ML BOTTLE BOTH EYES SCH ×4 (09:40→23:12)
[2021-09-04] MEDS: CLOTRIMAZOLE 1% CREAM 15 GM TUBE TOP SCH ×2 (09:40→22:01)
[2021-09-04] MEDS: predniSONE 20 MG TABLET PO SCH (09:40)
[2021-09-04] MEDS: amLODIPine 5 MG TABLET PO SCH (09:40)
[2021-09-04] MEDS: MULTIVITAMIN (BEROCCA) TABLET PO SCH (09:40)
[2021-09-04] MEDS: PANTOPRAZOLE 40 MG VIAL IV SCH ×2 (09:40→22:01)
[2021-09-04] MEDS: FUROSEMIDE 40 MG TABLET PO SCH (09:40)
[2021-09-04] MEDS: ISOSORBIDE MONONITRATE 30 MG TABLET PO SCH (09:40)
[2021-09-04] MEDS: CHOLECALCIFEROL 5,000 UNIT TABLET PO SCH (09:41)
[2021-09-04] MEDS: POLYETHYLENE GLYCOL POWDER 17 GM PACK PO SCH (09:48)
[2021-09-04] MEDS: VANCOMYCIN INJ 2,000 MG in SODIUM CHLORIDE 0.9% 500 ML IV SCH (11:32)
[2021-09-04] MEDS: LEVOFLOXACIN INJ 750 MG/150 ML PREMIX IV SCH (13:57)
[2021-09-05] MEDS: ALBUTEROL/IPRATROPIUM 3 ML NEB RESP TX SCH ×4 (00:58→18:55)
[2021-09-05 06:36] LABS: Calcium 8.7 MG/DL (8.5-10.1); Osmolality,Calculated 276.2 MOS/KG (273-304); Potassium 4.2 MMOL/L (3.5-5.1)
[2021-09-05 06:54] LABS: Basophils % 0.1 % (0.0-0.8); Eosinophils # 0.1 10*3/uL (0.0-0.87); Eosinophils % 1.2 % (0.00-10.9); Hematocrit 42.5 VOL% (35.7-47.0); Hemoglobin 11.8 GM/DL (12.0-16.0); Immature Granulocytes % 0.7 %; Immature Granulocytes Absolute 0.05 #; Lymphocytes # 1.3 10*3/uL (1.4-4.0); Lymphocytes % 16.5 % (21.3-54.2); Mean Corpuscular HGB Conc 27.8 GM/DL (32-36); Mean Platelet Volume 12.2 FL (9.6-12.0); Monocytes # 1.6 10*3/uL (0.11-0.8); Monocytes % 21.2 % (1.7-12.7); Neutrophils % 60.3 % (38.7-73.9); Platelet Count 146 T/CUMM (130-400); Red Blood Count 4.38 MC/CUMM (3.8-5.5); Red Cell Distribution Width 15.7 % (9.3-17.3); White Blood Count 7.7 T/CUMM (4-12)
[2021-09-05 07:04] LABS: Lymphocytes 15 % (20-55); Platelet Estimate Adequate; Total Cells Counted 100
[2021-09-05] MEDS: INSULIN LISPRO 100 UNIT/ML SUBCUT SCH ×4 (09:11→21:24)
[2021-09-05] MEDS: POLYETHYLENE GLYCOL POWDER 17 GM PACK PO SCH (09:11)
[2021-09-05] MEDS: PANTOPRAZOLE 40 MG VIAL IV SCH ×2 (09:11→21:25)
[2021-09-05] MEDS: amLODIPine 5 MG TABLET PO SCH (09:12)
[2021-09-05] MEDS: MULTIVITAMIN (BEROCCA) TABLET PO SCH (09:12)
[2021-09-05] MEDS: predniSONE 20 MG TABLET PO SCH (09:12)
[2021-09-05] MEDS: GENTAMICIN 0.3% OPH SOLN 5 ML BOTTLE BOTH EYES SCH ×4 (09:12→21:24)
[2021-09-05] MEDS: FUROSEMIDE 40 MG TABLET PO SCH (09:12)
[2021-09-05] MEDS: CHOLECALCIFEROL 5,000 UNIT TABLET PO SCH (09:12)
[2021-09-05] MEDS: CLOTRIMAZOLE 1% CREAM 15 GM TUBE TOP SCH ×2 (09:12→21:24)
[2021-09-05] MEDS: ISOSORBIDE MONONITRATE 30 MG TABLET PO SCH (09:12)
[2021-09-05] MEDS ORDERED: ACETAMINOPHEN 325 MG TABLET PO PRN (09:52)
[2021-09-05] MEDS: VANCOMYCIN INJ 2,000 MG in SODIUM CHLORIDE 0.9% 500 ML IV SCH (10:08)
[2021-09-05 11:08] LABS: Arterial Base Excess iSTAT 6 MMOL/L (-2.5-2.5); Arterial Bicarbonate iSTAT 35.5 MMOL/L (20-26); Arterial O2 Saturation iSTAT 95 % (95-100); Arterial PCO2 iSTAT 78 MM HG (35-48); Arterial PO2 iSTAT 92 MM HG (80-95); Arterial Total CO2 iSTAT 38 MMO/L (23-27); Arterial pH iSTAT 7.266 (7.35-7.45)
[2021-09-05] MEDS ORDERED: FUROSEMIDE 40 MG/4 ML VIAL IV ONE (12:00)
[2021-09-05] MEDS: PIPERACILLIN/TAZOBACTAM 3,375 MG in SODIUM CHLORIDE 0.9% 100 ML IV SCH ×2 (13:58→21:40)
[2021-09-05 15:12] LABS: Arterial Base Excess iSTAT 7 MMOL/L (-2.5-2.5); Arterial Bicarbonate iSTAT 36.3 MMOL/L (20-26); Arterial O2 Saturation iSTAT 96 % (95-100); Arterial PCO2 iSTAT 73 MM HG (35-48); Arterial PO2 iSTAT 95 MM HG (80-95); Arterial Total CO2 iSTAT 38 MMO/L (23-27); Arterial pH iSTAT 7.303 (7.35-7.45)
[2021-09-05] MEDS: FUROSEMIDE 40 MG/4 ML VIAL IV SCH (16:59)
[2021-09-05 17:48] LABS: Arterial Base Excess iSTAT 7 MMOL/L (-2.5-2.5); Arterial Bicarbonate iSTAT 36.8 MMOL/L (20-26); Arterial O2 Saturation iSTAT 96 % (95-100); Arterial PCO2 iSTAT 81 MM HG (35-48); Arterial PO2 iSTAT 100 MM HG (80-95); Arterial Total CO2 iSTAT 39 MMO/L (23-27); Arterial pH iSTAT 7.267 (7.35-7.45)
[2021-09-05 18:14] LABS: Basophils % 0.1 % (0.0-0.8); Eosinophils % 0.1 % (0.00-10.9); Hemoglobin 11.8 GM/DL (12.0-16.0); Red Blood Count 4.36 MC/CUMM (3.8-5.5)
[2021-09-05 18:28] LABS: Calcium 8.3 MG/DL (8.5-10.1); Osmolality,Calculated 283.8 MOS/KG (273-304); Potassium 4.3 MMOL/L (3.5-5.1)
[2021-09-05 18:41] LABS: Hematocrit 40.8 VOL% (35.7-47.0); Immature Granulocytes % 0.4 %; Immature Granulocytes Absolute 0.03 #; Lymphocytes # 0.9 10*3/uL (1.4-4.0); Lymphocytes % 13.1 % (21.3-54.2); Mean Corpuscular HGB Conc 28.9 GM/DL (32-36); Mean Corpuscular Volume 93.6 FL (87-102); Mean Platelet Volume 12.1 FL (9.6-12.0); Monocytes % 14.1 % (1.7-12.7); Neutrophils % 72.2 % (38.7-73.9); Platelet Count 136 T/CUMM (130-400); Red Cell Distribution Width 15.7 % (9.3-17.3); White Blood Count 7.2 T/CUMM (4-12)
[2021-09-05 19:11] VITALS: BP 124/67
[2021-09-05 19:11] LABS: Bilirubin,Urine Negative (Negative); Blood, Urine Moderate mg/dL (Negative); Glucose,Urine (UA) Negative (Negative); Ketones,Urine Negative (Negative); Nitrite,Urine Negative (Negative); Protein,Urine Negative (Negative); Urine Appearance Clear (Clear); Urine Color Yellow (Yellow); Urine pH 5.5 (4.5-8.0)
[2021-09-05 19:11] LABS: ABG Base Excess 4.7 MMOL/L (-2.5-2.5); ABG HCO3 28.7 MMOL/L (20-26); ABG Oxygen Saturation 98.7 % (95-100); ABG PH 7.276 (7.35-7.45); ABG TCO2 30.9 MMOL/L (23-27)
[2021-09-05 19:12] LABS: Urine Urobilinogen 0.2 eU/dL (<2.0)
[2021-09-05 19:12] LABS: ABG PCO2 73.4 MM HG (35-48)
[2021-09-05 19:25] LABS: Mucus,Urine Occasional /LPF (Occasional); RBC,Urine 36 /HPF (0-4); Squamous Epithelial Cell,Urine Occasional /HPF (0-10)
[2021-09-05] MEDS: ENOXAPARIN 40 MG/0.4 ML SYRINGE SUBCUT SCH (21:24)
[2021-09-05] MEDS: hydrALAZINE 20 MG/1 ML VIAL IV PRN (22:22)
[2021-09-06] MEDS: ALBUTEROL/IPRATROPIUM 3 ML NEB RESP TX SCH ×4 (00:22→19:30)
[2021-09-06 05:31] LABS: ABG Base Excess 3.9 MMOL/L (-2.5-2.5); ABG HCO3 27.9 MMOL/L (20-26); ABG Oxygen Saturation 97.6 % (95-100); ABG PH 7.265 (7.35-7.45); ABG TCO2 30.4 MMOL/L (23-27)
[2021-09-06 05:32] LABS: ABG PCO2 74.2 MM HG (35-48)
[2021-09-06 05:40] LABS: Calcium 9.1 MG/DL (8.5-10.1); Osmolality,Calculated 281.1 MOS/KG (273-304); Potassium 3.6 MMOL/L (3.5-5.1)
[2021-09-06 05:46] LABS: Albumin 2.8 G/DL (3.4-5.0); Bilirubin,Total 0.8 MG/DL (0.20-1.00); Calcium 9.1 MG/DL (8.5-10.1); Osmolality,Calculated 288.5 MOS/KG (273-304); Potassium 3.7 MMOL/L (3.5-5.1); Total Protein 7.6 G/DL (6.4-8.2)
[2021-09-06 05:52] LABS: Basophils % 0.1 % (0.0-0.8); Eosinophils # 0.1 10*3/uL (0.0-0.87); Eosinophils % 0.6 % (0.00-10.9); Hematocrit 41.6 VOL% (35.7-47.0); Immature Granulocytes % 0.3 %; Immature Granulocytes Absolute 0.03 #; Lymphocytes # 1.1 10*3/uL (1.4-4.0); Lymphocytes % 12.4 % (21.3-54.2); Mean Corpuscular HGB Conc 28.6 GM/DL (32-36); Mean Corpuscular Volume 93.7 FL (87-102); Mean Platelet Volume 12.4 FL (9.6-12.0); Monocytes # 1.7 10*3/uL (0.11-0.8); Monocytes % 18.4 % (1.7-12.7); Neutrophils % 68.2 % (38.7-73.9); Platelet Count 139 T/CUMM (130-400); Red Blood Count 4.44 MC/CUMM (3.8-5.5); Red Cell Distribution Width 15.8 % (9.3-17.3)
[2021-09-06] MEDS: PIPERACILLIN/TAZOBACTAM 3,375 MG in SODIUM CHLORIDE 0.9% 100 ML IV SCH ×3 (05:52→20:54)
[2021-09-06 05:58] LABS: Hemoglobin 11.9 GM/DL (12.0-16.0)
[2021-09-06 06:04] LABS: Eosinophils 3 % (0-10); Lymphocytes 10 % (20-55); Total Cells Counted 100
[2021-09-06 06:05] LABS: Platelet Estimate Adequate
[2021-09-06] MEDS: INSULIN LISPRO 100 UNIT/ML SUBCUT SCH ×4 (08:12→21:45)
[2021-09-06] MEDS: FUROSEMIDE 40 MG/4 ML VIAL IV SCH ×2 (08:35→16:19)
[2021-09-06] MEDS: methylPREDNISolone SOD SUC 40 MG/1 ML VIAL IV SCH ×3 (08:35→23:32)
[2021-09-06] MEDS: POLYETHYLENE GLYCOL POWDER 17 GM PACK PO SCH (08:37)
[2021-09-06] MEDS: MULTIVITAMIN (BEROCCA) TABLET PO SCH (08:39)
[2021-09-06] MEDS: amLODIPine 5 MG TABLET PO SCH (08:39)
[2021-09-06] MEDS: ISOSORBIDE MONONITRATE 30 MG TABLET PO SCH (08:41)
[2021-09-06] MEDS: CHOLECALCIFEROL 5,000 UNIT TABLET PO SCH (08:41)
[2021-09-06] MEDS: PANTOPRAZOLE 40 MG VIAL IV SCH ×2 (08:45→20:53)
[2021-09-06] MEDS: GENTAMICIN 0.3% OPH SOLN 5 ML BOTTLE BOTH EYES SCH ×4 (08:46→20:53)
[2021-09-06] MEDS: CLOTRIMAZOLE 1% CREAM 15 GM TUBE TOP SCH ×2 (08:47→20:52)
[2021-09-06] MEDS ORDERED: POTASSIUM CHLORIDE 20 MEQ TABLET PO ONE (10:30)
[2021-09-06] MEDS: THEOPHYLLINE ER (24 HR) 400 MG CAPSULE PO SCH (10:56)
[2021-09-06 11:54] LABS: Arterial Base Excess iSTAT 7 MMOL/L (-2.5-2.5); Arterial O2 Saturation iSTAT 95 % (95-100); Arterial PCO2 iSTAT 73 MM HG (35-48); Arterial PO2 iSTAT 90 MM HG (80-95); Arterial Total CO2 iSTAT 38 MMO/L (23-27); Arterial pH iSTAT 7.299 (7.35-7.45)
[2021-09-06] MEDS: VANCOMYCIN INJ 2,000 MG in SODIUM CHLORIDE 0.9% 500 ML IV SCH (11:54)
[2021-09-06] MEDS: ENOXAPARIN 40 MG/0.4 ML SYRINGE SUBCUT SCH (20:54)
[2021-09-07] MEDS: hydrALAZINE 20 MG/1 ML VIAL IV PRN ×2 (00:13→23:30)
[2021-09-07] MEDS: ALBUTEROL/IPRATROPIUM 3 ML NEB RESP TX SCH ×5 (01:28→23:59)
[2021-09-07 03:57] LABS: Osmolality,Calculated 288.7 MOS/KG (273-304); Potassium 3.7 MMOL/L (3.5-5.1)
[2021-09-07 04:05] LABS: Hematocrit 39.2 VOL% (35.7-47.0); Immature Granulocytes % 0.6 %; Immature Granulocytes Absolute 0.04 #; Lymphocytes # 0.5 10*3/uL (1.4-4.0); Lymphocytes % 8.1 % (21.3-54.2); Mean Corpuscular HGB Conc 28.8 GM/DL (32-36); Mean Corpuscular Volume 93.8 FL (87-102); Monocytes # 0.3 10*3/uL (0.11-0.8); Monocytes % 4.9 % (1.7-12.7); Neutrophils % 86.4 % (38.7-73.9); Platelet Count 129 T/CUMM (130-400); Red Blood Count 4.18 MC/CUMM (3.8-5.5); Red Cell Distribution Width 15.7 % (9.3-17.3); White Blood Count 6.3 T/CUMM (4-12)
[2021-09-07 04:07] LABS: Hemoglobin 11.3 GM/DL (12.0-16.0)
[2021-09-07] MEDS ORDERED: METOPROLOL TARTRATE 5 MG/5 ML VIAL IV PRN (04:10)
[2021-09-07] MEDS: PIPERACILLIN/TAZOBACTAM 3,375 MG in SODIUM CHLORIDE 0.9% 100 ML IV SCH ×3 (04:33→21:30)
[2021-09-07 04:58] LABS: ABG Base Excess 3.8 MMOL/L (-2.5-2.5); ABG HCO3 27.8 MMOL/L (20-26); ABG Oxygen Saturation 97.8 % (95-100); ABG PCO2 65.9 MM HG (35-48); ABG PH 7.298 (7.35-7.45); ABG TCO2 29.1 MMOL/L (23-27)
[2021-09-07] MEDS: methylPREDNISolone SOD SUC 40 MG/1 ML VIAL IV SCH ×2 (09:20→17:30)
[2021-09-07] MEDS: THEOPHYLLINE ER (24 HR) 400 MG CAPSULE PO SCH (09:20)
[2021-09-07] MEDS: FUROSEMIDE 40 MG/4 ML VIAL IV SCH ×2 (09:21→17:40)
[2021-09-07] MEDS: amLODIPine 5 MG TABLET PO SCH (09:21)
[2021-09-07] MEDS: CHOLECALCIFEROL 5,000 UNIT TABLET PO SCH ×2 (09:21→11:25)
[2021-09-07] MEDS: PANTOPRAZOLE 40 MG VIAL IV SCH ×2 (09:21→20:43)
[2021-09-07] MEDS: INSULIN LISPRO 100 UNIT/ML SUBCUT SCH ×4 (09:22→20:44)
[2021-09-07] MEDS: CLOTRIMAZOLE 1% CREAM 15 GM TUBE TOP SCH ×2 (09:23→20:45)
[2021-09-07] MEDS: GENTAMICIN 0.3% OPH SOLN 5 ML BOTTLE BOTH EYES SCH ×4 (09:25→20:44)
[2021-09-07] MEDS: ISOSORBIDE MONONITRATE 30 MG TABLET PO SCH (09:25)
[2021-09-07] MEDS: MULTIVITAMIN (BEROCCA) TABLET PO SCH (11:22)
[2021-09-07] MEDS: POLYETHYLENE GLYCOL POWDER 17 GM PACK PO SCH (11:23)
[2021-09-07] MEDS ORDERED: VANCOMYCIN INJ 2,000 MG in SODIUM CHLORIDE 0.9% 500 ML IV ONE (18:00)
[2021-09-07] MEDS: VANCOMYCIN INJ 2,000 MG in SODIUM CHLORIDE 0.9% 500 ML IV SCH (18:36)
[2021-09-07] MEDS: ENOXAPARIN 40 MG/0.4 ML SYRINGE SUBCUT SCH (20:43)
[2021-09-08] MEDS: methylPREDNISolone SOD SUC 40 MG/1 ML VIAL IV SCH ×3 (01:25→17:05)
[2021-09-08 03:57] LABS: Calcium 9.3 MG/DL (8.5-10.1); Osmolality,Calculated 282.2 MOS/KG (273-304); Potassium 3.2 MMOL/L (3.5-5.1)
[2021-09-08 04:15] LABS: Hemoglobin 11.7 GM/DL (12.0-16.0); Immature Granulocytes % 0.6 %; Immature Granulocytes Absolute 0.04 #; Lymphocytes # 0.7 10*3/uL (1.4-4.0); Lymphocytes % 9.9 % (21.3-54.2); Mean Corpuscular HGB Conc 29.6 GM/DL (32-36); Mean Corpuscular Volume 90.8 FL (87-102); Mean Platelet Volume 12.7 FL (9.6-12.0); Monocytes % 13.9 % (1.7-12.7); Neutrophils % 75.6 % (38.7-73.9); Platelet Count 133 T/CUMM (130-400); Red Blood Count 4.35 MC/CUMM (3.8-5.5); Red Cell Distribution Width 15.6 % (9.3-17.3); White Blood Count 6.9 T/CUMM (4-12)
[2021-09-08 04:16] LABS: Hematocrit 39.5 VOL% (35.7-47.0)
[2021-09-08] MEDS: PIPERACILLIN/TAZOBACTAM 3,375 MG in SODIUM CHLORIDE 0.9% 100 ML IV SCH ×3 (04:24→21:00)
[2021-09-08 05:24] LABS: ABG Base Excess 5.8 MMOL/L (-2.5-2.5); ABG HCO3 29.6 MMOL/L (20-26); ABG Oxygen Saturation 97.4 % (95-100); ABG PH 7.373 (7.35-7.45); ABG PO2 99.5 MM HG (80-95)
[2021-09-08] MEDS: ALBUTEROL/IPRATROPIUM 3 ML NEB RESP TX SCH ×3 (07:38→19:14)
[2021-09-08] MEDS: GENTAMICIN 0.3% OPH SOLN 5 ML BOTTLE BOTH EYES SCH ×4 (08:30→20:39)
[2021-09-08] MEDS: FUROSEMIDE 40 MG/4 ML VIAL IV SCH ×2 (08:31→17:04)
[2021-09-08] MEDS: PANTOPRAZOLE 40 MG VIAL IV SCH ×2 (08:31→20:39)
[2021-09-08] MEDS: THEOPHYLLINE ER (24 HR) 400 MG CAPSULE PO SCH (08:33)
[2021-09-08] MEDS: amLODIPine 5 MG TABLET PO SCH (08:33)
[2021-09-08] MEDS: ISOSORBIDE MONONITRATE 30 MG TABLET PO SCH (08:33)
[2021-09-08] MEDS: INSULIN LISPRO 100 UNIT/ML SUBCUT SCH ×4 (08:34→20:39)
[2021-09-08] MEDS: CLOTRIMAZOLE 1% CREAM 15 GM TUBE TOP SCH ×2 (09:00→20:39)
[2021-09-08] MEDS ORDERED: POTASSIUM CHLORIDE 20 MEQ TABLET PO ONE (12:14)
[2021-09-08] MEDS: MULTIVITAMIN (BEROCCA) TABLET PO SCH (13:45)
[2021-09-08] MEDS: POLYETHYLENE GLYCOL POWDER 17 GM PACK PO SCH (13:46)
[2021-09-08] MEDS: CHOLECALCIFEROL 5,000 UNIT TABLET PO SCH (13:46)
[2021-09-08] MEDS: ENOXAPARIN 40 MG/0.4 ML SYRINGE SUBCUT SCH (20:44)
[2021-09-09] MEDS: ALBUTEROL/IPRATROPIUM 3 ML NEB RESP TX SCH ×3 (00:09→14:00)
[2021-09-09] MEDS: methylPREDNISolone SOD SUC 40 MG/1 ML VIAL IV SCH ×3 (00:25→16:26)
[2021-09-09] MEDS: hydrALAZINE 20 MG/1 ML VIAL IV PRN (03:25)
[2021-09-09] MEDS: PIPERACILLIN/TAZOBACTAM 3,375 MG in SODIUM CHLORIDE 0.9% 100 ML IV SCH ×2 (04:55→12:47)
[2021-09-09 05:53] LABS: Calcium 9.3 MG/DL (8.5-10.1); Osmolality,Calculated 287.8 MOS/KG (273-304); Potassium 3.1 MMOL/L (3.5-5.1)
[2021-09-09 05:59] LABS: Hemoglobin 11.4 GM/DL (12.0-16.0); Immature Granulocytes % 0.7 %; Immature Granulocytes Absolute 0.04 #; Lymphocytes # 0.5 10*3/uL (1.4-4.0); Lymphocytes % 8.2 % (21.3-54.2); Mean Corpuscular HGB Conc 29.6 GM/DL (32-36); Mean Corpuscular Volume 90.2 FL (87-102); Mean Platelet Volume 11.9 FL (9.6-12.0); Monocytes # 0.5 10*3/uL (0.11-0.8); Monocytes % 7.9 % (1.7-12.7); NRBC # 0.02 10*3/uL; Neutrophils % 83.2 % (38.7-73.9); Platelet Count 129 T/CUMM (130-400); Red Blood Count 4.27 MC/CUMM (3.8-5.5); Red Cell Distribution Width 15.8 % (9.3-17.3); White Blood Count 6.1 T/CUMM (4-12)
[2021-09-09 06:00] LABS: Hematocrit 38.5 VOL% (35.7-47.0)
[2021-09-09] MEDS ORDERED: POTASSIUM CHLORIDE RIDER 10 MEQ/100 ML PREMIX IV PRN (06:21)
[2021-09-09] MEDS: POTASSIUM CHLORIDE RIDER 20 MEQ/100 ML PREMIX IV PRN ×2 (06:37→08:52)
[2021-09-09] MEDS ORDERED: PANTOPRAZOLE 40 MG TABLET PO SCH (09:00)
[2021-09-09] MEDS: FUROSEMIDE 40 MG/4 ML VIAL IV SCH ×2 (09:34→16:26)
[2021-09-09] MEDS: INSULIN LISPRO 100 UNIT/ML SUBCUT SCH ×3 (09:34→16:26)
[2021-09-09] MEDS: amLODIPine 5 MG TABLET PO SCH (09:35)
[2021-09-09] MEDS: CLOTRIMAZOLE 1% CREAM 15 GM TUBE TOP SCH (09:35)
[2021-09-09] MEDS: ISOSORBIDE MONONITRATE 30 MG TABLET PO SCH (09:35)
[2021-09-09] MEDS: GENTAMICIN 0.3% OPH SOLN 5 ML BOTTLE BOTH EYES SCH ×3 (09:35→16:26)
[2021-09-09] MEDS: POLYETHYLENE GLYCOL POWDER 17 GM PACK PO SCH ×2 (09:35→09:40)
[2021-09-09] MEDS: MULTIVITAMIN (BEROCCA) TABLET PO SCH (09:35)
[2021-09-09] MEDS: THEOPHYLLINE ER (24 HR) 400 MG CAPSULE PO SCH (09:36)
[2021-09-09] MEDS: CHOLECALCIFEROL 5,000 UNIT TABLET PO SCH (09:36)
== END 2021-09-09 17:40 | DRG 207 ==
LOC: EDBD → EDUNIT# → N.ED 11:53 → SUATTDRO 15:06 → N.EDINP 15:06 → N.ICU 15:57 → N.5E 09-01 18:33 → N.ICU 09-05 18:12
PROVIDERS: ADMIT Internal Medicine; ATTEND Internal Medicine

== ENCOUNTER 2021-11-07 12:35 | Inpatient (IN) ==
[2021-11-07 14:37] LABS: PT Patient Result 11.4 SECS (10.1-12.1)
[2021-11-07] MEDS ORDERED: hydrALAZINE 20 MG/1 ML VIAL IV STA (14:37)
[2021-11-07 14:38] LABS: Basophils % 0.3 % (0.0-0.8); Eosinophils # 2.5 10*3/uL (0.0-0.87); Eosinophils % 24.9 % (0.00-10.9); Hematocrit 33.3 VOL% (35.7-47.0); Hemoglobin 9.9 GM/DL (12.0-16.0); Immature Granulocytes % 0.5 %; Immature Granulocytes Absolute 0.05 #; Lymphocytes # 2.1 10*3/uL (1.4-4.0); Lymphocytes % 21.1 % (21.3-54.2); Mean Corpuscular HGB Conc 29.7 GM/DL (32-36); Mean Corpuscular Volume 93.8 FL (87-102); Mean Platelet Volume 10.8 FL (9.6-12.0); Monocytes # 1.1 10*3/uL (0.11-0.8); Monocytes % 10.8 % (1.7-12.7); Neutrophils % 42.4 % (38.7-73.9); Platelet Count 194 T/CUMM (130-400); Red Blood Count 3.55 MC/CUMM (3.8-5.5); Red Cell Distribution Width 15.4 % (9.3-17.3); White Blood Count 9.9 T/CUMM (4-12)
[2021-11-07] MEDS ORDERED: hydrALAZINE 20 MG/1 ML VIAL ONE (14:38)
[2021-11-07 14:42] LABS: Albumin 2.7 G/DL (3.4-5.0); Bilirubin,Total 0.5 MG/DL (0.20-1.00); Calcium 8.9 MG/DL (8.5-10.1); Osmolality,Calculated 278.3 MOS/KG (273-304); Total Protein 7.2 G/DL (6.4-8.2)
[2021-11-07 14:56] LABS: Eosinophils 23 % (0-10); Lymphocytes 16 % (20-55); Platelet Estimate Adequate; Total Cells Counted 100
[2021-11-07] MEDS ORDERED: FUROSEMIDE 40 MG/4 ML VIAL IV STA (15:08)
[2021-11-07] MEDS ORDERED: VANCOMYCIN INJ 1,000 MG in SODIUM CHLORIDE 0.9% 250 ML IV STA (15:08)
[2021-11-07] MEDS ORDERED: MORPHINE 2 MG/1 ML SYRINGE IV ONE (15:17)
[2021-11-07] MEDS ORDERED: MORPHINE 2 MG/1 ML SYRINGE ONE (15:18)
[2021-11-07] MEDS ORDERED: hydrALAZINE 20 MG/1 ML VIAL IV PRN (15:31)
[2021-11-07] MEDS ORDERED: GLUCAGON 1 MG VIAL IM PRN (15:31)
[2021-11-07] MEDS ORDERED: ONDANSETRON 4 MG/2 ML VIAL IV PRN (15:31)
[2021-11-07] MEDS ORDERED: ACETAMINOPHEN 325 MG TABLET PO PRN (15:31)
[2021-11-07] MEDS ORDERED: POTASSIUM CHLORIDE 20 MEQ TABLET PO PRN (15:34)
[2021-11-07] MEDS ORDERED: MAGNESIUM SULF RIDER 2 GM/50 ML PREMIX IV PRN (15:34)
[2021-11-07] MEDS ORDERED: MAGNESIUM SULF RIDER 4 GM/100 ML PREMIX IV PRN (15:34)
[2021-11-07] MEDS ORDERED: DEXTROSE 10% 250 ML BAG IV PRN (16:16)
[2021-11-07] MEDS: INSULIN LISPRO 100 UNIT/ML SUBCUT SCH (23:10)
[2021-11-07] MEDS: FUROSEMIDE 40 MG/4 ML VIAL IV SCH (23:10)
[2021-11-07] MEDS ORDERED: diphenhydrAMINE CAP 25 MG CAPSULE PO STA (23:13)
[2021-11-07] MEDS: ENOXAPARIN 40 MG/0.4 ML SYRINGE SUBCUT SCH (23:21)
[2021-11-07] MEDS: GABAPENTIN 100 MG CAPSULE PO SCH (23:21)
[2021-11-07] MEDS: DOCUSATE SODIUM 100 MG CAPSULE PO SCH (23:21)
[2021-11-08] MEDS: INSULIN LISPRO 100 UNIT/ML SUBCUT SCH ×5 (01:27→20:29)
[2021-11-08 04:43] LABS: Basophils % 0.3 % (0.0-0.8); Eosinophils # 2.4 10*3/uL (0.0-0.87); Eosinophils % 25.1 % (0.00-10.9); Hematocrit 33.4 VOL% (35.7-47.0); Hemoglobin 9.9 GM/DL (12.0-16.0); Immature Granulocytes % 0.3 %; Immature Granulocytes Absolute 0.03 #; Lymphocytes # 2.3 10*3/uL (1.4-4.0); Lymphocytes % 23.4 % (21.3-54.2); Mean Corpuscular HGB Conc 29.6 GM/DL (32-36); Mean Corpuscular Volume 95.4 FL (87-102); Mean Platelet Volume 10.4 FL (9.6-12.0); Monocytes # 1.2 10*3/uL (0.11-0.8); Monocytes % 12.1 % (1.7-12.7); Neutrophils % 38.8 % (38.7-73.9); Platelet Count 193 T/CUMM (130-400); Red Cell Distribution Width 15.7 % (9.3-17.3); White Blood Count 9.7 T/CUMM (4-12)
[2021-11-08 05:06] LABS: Eosinophils 29 % (0-10); Hypochromia Slight; Lymphocytes 19 % (20-55); Platelet Estimate Adequate; Total Cells Counted 100
[2021-11-08 05:07] LABS: Calcium 9.6 MG/DL (8.5-10.1); Osmolality,Calculated 271.7 MOS/KG (273-304); Potassium 3.8 MMOL/L (3.5-5.1); Risk Ratio 2.47; VLDL Cholesterol 22.8 MG/DL
[2021-11-08] MEDS: CHOLECALCIFEROL 5,000 UNIT TABLET PO SCH (08:54)
[2021-11-08] MEDS: amLODIPine 5 MG TABLET PO SCH (08:54)
[2021-11-08] MEDS: ISOSORBIDE MONONITRATE 30 MG TABLET PO SCH (08:54)
[2021-11-08] MEDS: GABAPENTIN 100 MG CAPSULE PO SCH ×3 (08:54→20:44)
[2021-11-08] MEDS: DOCUSATE SODIUM 100 MG CAPSULE PO SCH ×2 (08:54→20:44)
[2021-11-08] MEDS: ASPIRIN EC 81 MG TABLET PO SCH (08:55)
[2021-11-08] MEDS: LOSARTAN 25 MG TABLET PO SCH (08:59)
[2021-11-08] MEDS: FUROSEMIDE 40 MG/4 ML VIAL IV SCH ×2 (10:09→17:11)
[2021-11-08] MEDS: diphenhydrAMINE CAP 25 MG CAPSULE PO PRN ×2 (14:02→20:58)
[2021-11-08] MEDS: MORPHINE 2 MG/1 ML SYRINGE IV PRN (18:21)
[2021-11-08] MEDS: ENOXAPARIN 40 MG/0.4 ML SYRINGE SUBCUT SCH (20:45)
[2021-11-09 05:45] LABS: Calcium 8.7 MG/DL (8.5-10.1); Osmolality,Calculated 275.5 MOS/KG (273-304); Potassium 3.5 MMOL/L (3.5-5.1)
[2021-11-09 05:55] LABS: Basophils % 0.2 % (0.0-0.8); Eosinophils # 2.8 10*3/uL (0.0-0.87); Eosinophils % 27.5 % (0.00-10.9); Hematocrit 35.1 VOL% (35.7-47.0); Hemoglobin 10.4 GM/DL (12.0-16.0); Immature Granulocytes % 0.4 %; Immature Granulocytes Absolute 0.04 #; Lymphocytes % 20.1 % (21.3-54.2); Mean Corpuscular HGB Conc 29.6 GM/DL (32-36); Mean Corpuscular Volume 95.6 FL (87-102); Mean Platelet Volume 11.1 FL (9.6-12.0); Monocytes # 1.2 10*3/uL (0.11-0.8); Monocytes % 12.2 % (1.7-12.7); Neutrophils % 39.6 % (38.7-73.9); Platelet Count 185 T/CUMM (130-400); Red Blood Count 3.67 MC/CUMM (3.8-5.5); Red Cell Distribution Width 15.7 % (9.3-17.3); White Blood Count 10.1 T/CUMM (4-12)
[2021-11-09 06:04] LABS: Eosinophils 30 % (0-10); Hypochromia Slight; Lymphocytes 23 % (20-55); Platelet Estimate Adequate; Total Cells Counted 100
[2021-11-09] MEDS: INSULIN LISPRO 100 UNIT/ML SUBCUT SCH ×4 (06:32→20:09)
[2021-11-09] MEDS: LOSARTAN 25 MG TABLET PO SCH (09:53)
[2021-11-09] MEDS: FUROSEMIDE 40 MG/4 ML VIAL IV SCH ×2 (09:53→16:04)
[2021-11-09] MEDS: CHOLECALCIFEROL 5,000 UNIT TABLET PO SCH (09:54)
[2021-11-09] MEDS: GABAPENTIN 100 MG CAPSULE PO SCH (09:54)
[2021-11-09] MEDS: amLODIPine 5 MG TABLET PO SCH (09:54)
[2021-11-09] MEDS: ASPIRIN EC 81 MG TABLET PO SCH (09:54)
[2021-11-09] MEDS: ISOSORBIDE MONONITRATE 30 MG TABLET PO SCH (09:54)
[2021-11-09] MEDS: DOCUSATE SODIUM 100 MG CAPSULE PO SCH ×2 (09:55→20:38)
[2021-11-09] MEDS: MORPHINE 2 MG/1 ML SYRINGE IV PRN (12:36)
[2021-11-09] MEDS: diphenhydrAMINE CAP 25 MG CAPSULE PO PRN ×2 (12:36→20:37)
[2021-11-09] MEDS ORDERED: ZINC OXIDE PASTE 113 GM TUBE TOP PRN (15:37)
[2021-11-09] MEDS: ENOXAPARIN 40 MG/0.4 ML SYRINGE SUBCUT SCH (20:38)
[2021-11-10 06:08] LABS: Calcium 8.3 MG/DL (8.5-10.1); Osmolality,Calculated 272.7 MOS/KG (273-304); Potassium 3.3 MMOL/L (3.5-5.1)
[2021-11-10 06:10] LABS: Basophils % 0.2 % (0.0-0.8); Eosinophils # 3.2 10*3/uL (0.0-0.87); Eosinophils % 25.3 % (0.00-10.9); Hematocrit 33.2 VOL% (35.7-47.0); Hemoglobin 9.8 GM/DL (12.0-16.0); Immature Granulocytes % 0.2 %; Immature Granulocytes Absolute 0.03 #; Lymphocytes % 23.1 % (21.3-54.2); Mean Corpuscular HGB Conc 29.5 GM/DL (32-36); Mean Corpuscular Volume 96.2 FL (87-102); Mean Platelet Volume 10.9 FL (9.6-12.0); Monocytes # 1.7 10*3/uL (0.11-0.8); Monocytes % 13.3 % (1.7-12.7); Neutrophils % 37.9 % (38.7-73.9); Platelet Count 190 T/CUMM (130-400); Red Blood Count 3.45 MC/CUMM (3.8-5.5); Red Cell Distribution Width 15.7 % (9.3-17.3); White Blood Count 12.8 T/CUMM (4-12)
[2021-11-10 06:16] LABS: Eosinophils 27 % (0-10); Hypochromia Slight; Lymphocytes 17 % (20-55); Platelet Estimate Adequate; Total Cells Counted 100
[2021-11-10] MEDS: INSULIN LISPRO 100 UNIT/ML SUBCUT SCH ×4 (06:32→20:36)
[2021-11-10] MEDS: FUROSEMIDE 40 MG/4 ML VIAL IV SCH ×2 (09:55→16:49)
[2021-11-10] MEDS: LOSARTAN 25 MG TABLET PO SCH (09:56)
[2021-11-10] MEDS: diphenhydrAMINE CAP 25 MG CAPSULE PO PRN ×3 (09:56→21:12)
[2021-11-10] MEDS: CHOLECALCIFEROL 5,000 UNIT TABLET PO SCH (09:56)
[2021-11-10] MEDS: amLODIPine 5 MG TABLET PO SCH (09:56)
[2021-11-10] MEDS: ISOSORBIDE MONONITRATE 30 MG TABLET PO SCH (09:56)
[2021-11-10] MEDS: ASPIRIN EC 81 MG TABLET PO SCH (09:57)
[2021-11-10] MEDS: DOCUSATE SODIUM 100 MG CAPSULE PO SCH ×2 (09:58→21:12)
[2021-11-10] MEDS: MORPHINE 2 MG/1 ML SYRINGE IV PRN (16:55)
[2021-11-10] MEDS: ENOXAPARIN 40 MG/0.4 ML SYRINGE SUBCUT SCH (21:12)
[2021-11-11 05:41] LABS: Calcium 8.1 MG/DL (8.5-10.1); Osmolality,Calculated 274.5 MOS/KG (273-304); Potassium 3.2 MMOL/L (3.5-5.1)
[2021-11-11 05:53] LABS: Calcium 8.1 MG/DL (8.5-10.1); Osmolality,Calculated 274.5 MOS/KG (273-304); Potassium 3.3 MMOL/L (3.5-5.1)
[2021-11-11 05:56] LABS: Basophils % 0.3 % (0.0-0.8); Eosinophils # 3.3 10*3/uL (0.0-0.87); Eosinophils % 28.2 % (0.00-10.9); Hematocrit 33.9 VOL% (35.7-47.0); Immature Granulocytes % 0.3 %; Immature Granulocytes Absolute 0.03 #; Lymphocytes # 2.9 10*3/uL (1.4-4.0); Lymphocytes % 24.7 % (21.3-54.2); Mean Corpuscular HGB Conc 29.5 GM/DL (32-36); Mean Corpuscular Volume 96.3 FL (87-102); Mean Platelet Volume 10.6 FL (9.6-12.0); Monocytes # 1.4 10*3/uL (0.11-0.8); Monocytes % 11.6 % (1.7-12.7); Neutrophils % 34.9 % (38.7-73.9); Platelet Count 202 T/CUMM (130-400); Red Blood Count 3.52 MC/CUMM (3.8-5.5); Red Cell Distribution Width 15.7 % (9.3-17.3); White Blood Count 11.7 T/CUMM (4-12)
[2021-11-11 06:14] LABS: Eosinophils 32 % (0-10); Hypochromia Slight; Lymphocytes 17 % (20-55); Platelet Estimate Adequate; Total Cells Counted 100
[2021-11-11] MEDS: INSULIN LISPRO 100 UNIT/ML SUBCUT SCH ×4 (06:59→21:09)
[2021-11-11] MEDS: DOCUSATE SODIUM 100 MG CAPSULE PO SCH ×2 (09:36→21:08)
[2021-11-11] MEDS: ISOSORBIDE MONONITRATE 30 MG TABLET PO SCH (09:37)
[2021-11-11] MEDS: amLODIPine 5 MG TABLET PO SCH (09:37)
[2021-11-11] MEDS: CHOLECALCIFEROL 5,000 UNIT TABLET PO SCH (09:37)
[2021-11-11] MEDS: LOSARTAN 25 MG TABLET PO SCH (09:37)
[2021-11-11] MEDS: ASPIRIN EC 81 MG TABLET PO SCH (09:37)
[2021-11-11] MEDS: FUROSEMIDE 40 MG/4 ML VIAL IV SCH ×2 (09:56→17:14)
[2021-11-11] MEDS: POTASSIUM CHLORIDE 20 MEQ TABLET PO SCH ×2 (10:14→21:09)
[2021-11-11] MEDS: ENOXAPARIN 40 MG/0.4 ML SYRINGE SUBCUT SCH (21:09)
[2021-11-12] MEDS: ISOSORBIDE MONONITRATE 30 MG TABLET PO SCH (08:47)
[2021-11-12] MEDS: ASPIRIN EC 81 MG TABLET PO SCH (08:48)
[2021-11-12] MEDS: amLODIPine 5 MG TABLET PO SCH (08:48)
[2021-11-12] MEDS: LOSARTAN 25 MG TABLET PO SCH (08:48)
[2021-11-12] MEDS: CHOLECALCIFEROL 5,000 UNIT TABLET PO SCH (08:48)
[2021-11-12] MEDS: DOCUSATE SODIUM 100 MG CAPSULE PO SCH (08:48)
[2021-11-12] MEDS: POTASSIUM CHLORIDE 20 MEQ TABLET PO SCH (08:48)
[2021-11-12] MEDS: INSULIN LISPRO 100 UNIT/ML SUBCUT SCH ×2 (08:49→14:11)
[2021-11-12] MEDS: diphenhydrAMINE CAP 25 MG CAPSULE PO PRN (08:53)
[2021-11-12 09:13] VITALS: BP 125/70
[2021-11-12] MEDS: FUROSEMIDE 40 MG/4 ML VIAL IV SCH (11:14)
== END 2021-11-12 13:47 | disposition home health service (06) | DRG 291 ==
LOC: EDBD → EDUNIT# → N.ED 12:35 → N.EDINP 15:31 → SUATTDRO 15:31 → N.TELES 11-08 07:28
PROVIDERS: ADMIT Internal Medicine; ATTEND Internal Medicine Geriatric Medicine

== ENCOUNTER 2021-12-10 15:39 | Inpatient (IN) ==
[2021-12-10 17:15] LABS: Basophils % 0.1 % (0.0-0.8); Eosinophils # 0.5 10*3/uL (0.0-0.87); Eosinophils % 6.2 % (0.00-10.9); Hemoglobin 10.4 GM/DL (12.0-16.0); Immature Granulocytes % 0.3 %; Immature Granulocytes Absolute 0.02 #; Lymphocytes # 2.2 10*3/uL (1.4-4.0); Lymphocytes % 30.3 % (21.3-54.2); Mean Corpuscular HGB Conc 29.7 GM/DL (32-36); Mean Corpuscular Volume 96.2 FL (87-102); Mean Platelet Volume 10.7 FL (9.6-12.0); Monocytes # 0.7 10*3/uL (0.11-0.8); Monocytes % 10.1 % (1.7-12.7); Platelet Count 241 T/CUMM (130-400); Red Blood Count 3.64 MC/CUMM (3.8-5.5); Red Cell Distribution Width 14.6 % (9.3-17.3); White Blood Count 7.3 T/CUMM (4-12)
[2021-12-10 17:38] LABS: Albumin 2.4 G/DL (3.4-5.0); Bilirubin,Total 0.5 MG/DL (0.20-1.00); Calcium 8.6 MG/DL (8.5-10.1); Osmolality,Calculated 275.4 MOS/KG (273-304); Potassium 3.8 MMOL/L (3.5-5.1); Total Protein 7.7 G/DL (6.4-8.2)
[2021-12-10] MEDS ORDERED: PIPERACILLIN/TAZOBACTAM 3,375 MG in SODIUM CHLORIDE 0.9% 100 ML IV STA (17:46)
[2021-12-10] MEDS ORDERED: VANCOMYCIN INJ 1,000 MG in SODIUM CHLORIDE 0.9% 250 ML IV STA (17:46)
[2021-12-10] MEDS ORDERED: ONDANSETRON 4 MG/2 ML VIAL IV STA (18:21)
[2021-12-10] MEDS ORDERED: MORPHINE 2 MG/1 ML SYRINGE IV STA (18:21)
[2021-12-10] MEDS ORDERED: guaiFENesin/DM ER 600-30 MG TABLET PO PRN (18:49)
[2021-12-10] MEDS ORDERED: DOCUSATE SODIUM 100 MG CAPSULE PO PRN (18:49)
[2021-12-10] MEDS ORDERED: CALCIUM CARBONATE CHEW 500 MG TABLET PO PRN (18:49)
[2021-12-10] MEDS ORDERED: ALBUTEROL 2.5 MG/3 ML NEB RESP TX PRN (19:01)
[2021-12-10] MEDS: hydrALAZINE 20 MG/1 ML VIAL IV PRN (19:24)
[2021-12-10] MEDS: cloNIDine 0.1 MG TABLET PO SCH (21:57)
[2021-12-10] MEDS: FUROSEMIDE 40 MG/4 ML VIAL IV SCH (22:02)
[2021-12-10] MEDS: ENOXAPARIN 40 MG/0.4 ML SYRINGE SUBCUT SCH (22:03)
[2021-12-10] MEDS: METHOCARBAMOL 500 MG TABLET PO SCH (22:03)
[2021-12-11 05:21] LABS: Calcium 8.4 MG/DL (8.5-10.1); Osmolality,Calculated 278.4 MOS/KG (273-304); Potassium 3.9 MMOL/L (3.5-5.1)
[2021-12-11 05:29] LABS: Basophils % 0.2 % (0.0-0.8); Eosinophils # 0.1 10*3/uL (0.0-0.87); Eosinophils % 1.4 % (0.00-10.9); Hematocrit 37.3 VOL% (35.7-47.0); Immature Granulocytes % 0.7 %; Immature Granulocytes Absolute 0.06 #; Lymphocytes # 1.2 10*3/uL (1.4-4.0); Lymphocytes % 14.8 % (21.3-54.2); Mean Corpuscular HGB Conc 28.2 GM/DL (32-36); Mean Corpuscular Volume 102.2 FL (87-102); Mean Platelet Volume 10.8 FL (9.6-12.0); Monocytes % 12.8 % (1.7-12.7); Neutrophils % 70.1 % (38.7-73.9); Platelet Count 248 T/CUMM (130-400); Red Blood Count 3.65 MC/CUMM (3.8-5.5); Red Cell Distribution Width 14.8 % (9.3-17.3)
[2021-12-11 05:30] LABS: Hemoglobin 10.5 GM/DL (12.0-16.0)
[2021-12-11] MEDS: cloNIDine 0.1 MG TABLET PO SCH ×2 (09:02→21:21)
[2021-12-11] MEDS: METHOCARBAMOL 500 MG TABLET PO SCH ×3 (09:02→21:21)
[2021-12-11] MEDS: CHOLECALCIFEROL 5,000 UNIT TABLET PO SCH (09:02)
[2021-12-11] MEDS: ASPIRIN EC 81 MG TABLET PO SCH (09:03)
[2021-12-11] MEDS: LOSARTAN 25 MG TABLET PO SCH (09:03)
[2021-12-11] MEDS: ISOSORBIDE MONONITRATE 30 MG TABLET PO SCH (09:03)
[2021-12-11] MEDS: FUROSEMIDE 40 MG/4 ML VIAL IV SCH ×2 (09:03→21:22)
[2021-12-11 15:15] LABS: % Iron Saturation 9.9 % (18-50)
[2021-12-11 15:21] LABS: Folate 12.44 NG/ML (5.38-24.0)
[2021-12-11] MEDS: cefTRIAXone 1,000 MG in SODIUM CHLORIDE 0.9% 100 ML IV SCH (15:24)
[2021-12-11] MEDS: ACETAMINOPHEN 325 MG TABLET PO PRN (15:29)
[2021-12-11] MEDS: ENOXAPARIN 40 MG/0.4 ML SYRINGE SUBCUT SCH (21:22)
[2021-12-12 06:12] LABS: Calcium 8.5 MG/DL (8.5-10.1); Osmolality,Calculated 277.4 MOS/KG (273-304); Potassium 4.1 MMOL/L (3.5-5.1)
[2021-12-12 06:22] LABS: Basophils % 0.1 % (0.0-0.8); Eosinophils # 0.3 10*3/uL (0.0-0.87); Hematocrit 35.5 VOL% (35.7-47.0); Immature Granulocytes % 1.9 %; Immature Granulocytes Absolute 0.15 #; Lymphocytes # 1.6 10*3/uL (1.4-4.0); Lymphocytes % 20.8 % (21.3-54.2); Mean Corpuscular HGB Conc 28.5 GM/DL (32-36); Mean Corpuscular Volume 102.6 FL (87-102); Mean Platelet Volume 10.4 FL (9.6-12.0); Monocytes # 0.8 10*3/uL (0.11-0.8); Monocytes % 10.5 % (1.7-12.7); Neutrophils % 62.7 % (38.7-73.9); Red Blood Count 3.46 MC/CUMM (3.8-5.5); Red Cell Distribution Width 14.7 % (9.3-17.3); White Blood Count 7.8 T/CUMM (4-12)
[2021-12-12 06:24] LABS: Hemoglobin 10.1 GM/DL (12.0-16.0); Platelet Count 198 T/CUMM (130-400)
[2021-12-12 06:27] LABS: Platelet Estimate Adequate
[2021-12-12] MEDS: CHOLECALCIFEROL 5,000 UNIT TABLET PO SCH (08:10)
[2021-12-12] MEDS: FUROSEMIDE 40 MG/4 ML VIAL IV SCH ×2 (08:10→21:05)
[2021-12-12] MEDS: LOSARTAN 25 MG TABLET PO SCH (08:11)
[2021-12-12] MEDS: cloNIDine 0.1 MG TABLET PO SCH ×2 (08:11→21:05)
[2021-12-12] MEDS: ISOSORBIDE MONONITRATE 30 MG TABLET PO SCH (08:11)
[2021-12-12] MEDS: ASPIRIN EC 81 MG TABLET PO SCH (08:11)
[2021-12-12] MEDS: METHOCARBAMOL 500 MG TABLET PO SCH ×3 (08:11→21:05)
[2021-12-12] MEDS: ACETAMINOPHEN 325 MG TABLET PO PRN (10:30)
[2021-12-12] MEDS: ONDANSETRON 4 MG/2 ML VIAL IV PRN ×2 (13:05→16:42)
[2021-12-12] MEDS: cefTRIAXone 1,000 MG in SODIUM CHLORIDE 0.9% 100 ML IV SCH (15:10)
[2021-12-12] MEDS: MORPHINE 2 MG/1 ML SYRINGE IV PRN (16:42)
[2021-12-12] MEDS: ENOXAPARIN 40 MG/0.4 ML SYRINGE SUBCUT SCH (21:05)
[2021-12-13] MEDS: MORPHINE 2 MG/1 ML SYRINGE IV PRN (03:39)
[2021-12-13] MEDS: ONDANSETRON 4 MG/2 ML VIAL IV PRN (03:40)
[2021-12-13 06:32] LABS: Calcium 8.6 MG/DL (8.5-10.1)
[2021-12-13 06:33] LABS: Basophils % 0.2 % (0.0-0.8); Eosinophils # 0.2 10*3/uL (0.0-0.87); Eosinophils % 3.7 % (0.00-10.9); Hematocrit 35.2 VOL% (35.7-47.0); Immature Granulocytes % 2.2 %; Immature Granulocytes Absolute 0.14 #; Lymphocytes # 1.1 10*3/uL (1.4-4.0); Lymphocytes % 16.8 % (21.3-54.2); Mean Corpuscular HGB Conc 28.4 GM/DL (32-36); Mean Corpuscular Volume 102.3 FL (87-102); Mean Platelet Volume 10.8 FL (9.6-12.0); Monocytes # 0.7 10*3/uL (0.11-0.8); Monocytes % 11.4 % (1.7-12.7); NRBC # 0.02 10*3/uL; Neutrophils % 65.7 % (38.7-73.9); Platelet Count 221 T/CUMM (130-400); Red Blood Count 3.44 MC/CUMM (3.8-5.5); Red Cell Distribution Width 14.5 % (9.3-17.3); White Blood Count 6.5 T/CUMM (4-12)
[2021-12-13 06:40] LABS: Osmolality,Calculated 277.4 MOS/KG (273-304); Potassium 4.3 MMOL/L (3.5-5.1)
[2021-12-13] MEDS: ASPIRIN EC 81 MG TABLET PO SCH (09:14)
[2021-12-13] MEDS: METHOCARBAMOL 500 MG TABLET PO SCH ×3 (09:14→20:07)
[2021-12-13] MEDS: cloNIDine 0.1 MG TABLET PO SCH ×2 (09:14→20:07)
[2021-12-13] MEDS: CHOLECALCIFEROL 5,000 UNIT TABLET PO SCH (09:14)
[2021-12-13] MEDS: ISOSORBIDE MONONITRATE 30 MG TABLET PO SCH (09:15)
[2021-12-13] MEDS: FUROSEMIDE 40 MG/4 ML VIAL IV SCH ×2 (09:15→16:15)
[2021-12-13] MEDS: LOSARTAN 25 MG TABLET PO SCH (09:15)
[2021-12-13] MEDS: FERRIC GLUCONATE COMPLEX 125 MG in SODIUM CHLORIDE 0.9% 100 ML IV SCH (16:14)
[2021-12-13] MEDS: LEVOFLOXACIN INJ 500 MG/100 ML PREMIX IV SCH (17:32)
[2021-12-13] MEDS: ENOXAPARIN 40 MG/0.4 ML SYRINGE SUBCUT SCH (20:07)
[2021-12-14] MEDS: MORPHINE 2 MG/1 ML SYRINGE IV PRN ×2 (00:21→23:00)
[2021-12-14] MEDS: ONDANSETRON 4 MG/2 ML VIAL IV PRN (00:22)
[2021-12-14] MEDS: METHOCARBAMOL 500 MG TABLET PO SCH (09:17)
[2021-12-14] MEDS: ISOSORBIDE MONONITRATE 30 MG TABLET PO SCH (09:17)
[2021-12-14] MEDS: LOSARTAN 25 MG TABLET PO SCH ×2 (09:17→20:25)
[2021-12-14] MEDS: CHOLECALCIFEROL 5,000 UNIT TABLET PO SCH (09:17)
[2021-12-14] MEDS: ASPIRIN EC 81 MG TABLET PO SCH (09:17)
[2021-12-14] MEDS: cloNIDine 0.1 MG TABLET PO SCH ×2 (09:17→20:25)
[2021-12-14] MEDS: ENOXAPARIN 40 MG/0.4 ML SYRINGE SUBCUT SCH ×2 (09:18→23:00)
[2021-12-14] MEDS: FERRIC GLUCONATE COMPLEX 125 MG in SODIUM CHLORIDE 0.9% 100 ML IV SCH (09:19)
[2021-12-14] MEDS: FUROSEMIDE 40 MG/4 ML VIAL IV SCH ×2 (09:23→15:34)
[2021-12-14] MEDS: LEVOFLOXACIN INJ 500 MG/100 ML PREMIX IV SCH (12:00)
[2021-12-14] MEDS ORDERED: diphenhydrAMINE 2% CREAM 28 GM TUBE TOP PRN (15:27)
[2021-12-14] MEDS: ACETAMINOPHEN 325 MG TABLET PO PRN (15:34)
[2021-12-14] MEDS ORDERED: METHOCARBAMOL 500 MG TABLET PO SCH (21:00)
[2021-12-15] MEDS: hydrALAZINE 20 MG/1 ML VIAL IV PRN (01:07)
[2021-12-15 06:26] LABS: Basophils % 0.2 % (0.0-0.8); Eosinophils # 0.7 10*3/uL (0.0-0.87); Eosinophils % 8.3 % (0.00-10.9); Hemoglobin 10.5 GM/DL (12.0-16.0); Immature Granulocytes Absolute 0.08 #; Lymphocytes # 1.5 10*3/uL (1.4-4.0); Mean Corpuscular HGB Conc 28.8 GM/DL (32-36); Mean Corpuscular Volume 98.6 FL (87-102); Mean Platelet Volume 10.9 FL (9.6-12.0); Monocytes % 11.8 % (1.7-12.7); NRBC # 0.02 10*3/uL; Neutrophils % 60.7 % (38.7-73.9); Platelet Count 225 T/CUMM (130-400); Red Blood Count 3.69 MC/CUMM (3.8-5.5); Red Cell Distribution Width 14.3 % (9.3-17.3); White Blood Count 8.1 T/CUMM (4-12)
[2021-12-15 06:27] LABS: Hematocrit 36.4 VOL% (35.7-47.0)
[2021-12-15 06:52] LABS: Calcium 8.8 MG/DL (8.5-10.1); Osmolality,Calculated 273.7 MOS/KG (273-304)
[2021-12-15 07:01] LABS: Potassium 3.6 MMOL/L (3.5-5.1)
[2021-12-15] MEDS: cloNIDine 0.1 MG TABLET PO SCH (08:57)
[2021-12-15] MEDS: ASPIRIN EC 81 MG TABLET PO SCH (08:57)
[2021-12-15] MEDS: LOSARTAN 25 MG TABLET PO SCH (08:57)
[2021-12-15] MEDS: CHOLECALCIFEROL 5,000 UNIT TABLET PO SCH (08:57)
[2021-12-15] MEDS: ISOSORBIDE MONONITRATE 30 MG TABLET PO SCH (08:58)
[2021-12-15] MEDS: ENOXAPARIN 40 MG/0.4 ML SYRINGE SUBCUT SCH (09:00)
[2021-12-15] MEDS: FERRIC GLUCONATE COMPLEX 125 MG in SODIUM CHLORIDE 0.9% 100 ML IV SCH (09:02)
[2021-12-15] MEDS: FUROSEMIDE 40 MG/4 ML VIAL IV SCH ×2 (09:02→16:47)
[2021-12-15] MEDS ORDERED: LEVOFLOXACIN 750 MG TABLET PO SCH (11:00)
[2021-12-15 15:57] VITALS: BP 152/97
== END 2021-12-15 16:20 | disposition home health service (06) | DRG 602 ==
LOC: EDUNIT# → EDBD → N.ED 15:39 → N.EDINP 18:49 → N.3E 19:21
PROVIDERS: ADMIT Internal Medicine; ATTEND Internal Medicine